=== PATIENT | male | born 1955 | race Hispanic/Latino ===

== ENCOUNTER 2017-05-25 09:52 | Emergency (ER) | payer SELFPAY ==
[~2017-05-25] VITALS: Ht 182.9 cm; Wt 70.0 kg
[~2017-05-25 09:52] MED LIST: CLONIDINE0.1 MG PO; ZOFRAN ODT4 MG PO
[2017-05-25] MEDS ORDERED: LORTAB 5-325 MG1 TAB PO (10:15)
[2017-05-25] MEDS ORDERED: PENICILLN VK500 MG PO (10:15)
[2017-05-25 10:20] VITALS: BP 118/70
== END 2017-05-25 10:20 | disposition home or self-care (01) | DRG 159 ==
LOC: ED 09:52
DX: K08.89 Other specified disorders of teeth and supporting structures (principal)

== ENCOUNTER 2018-03-19 17:10 | Inpatient (IN) | payer SELFPAY ==
[~2018-03-19] VITALS: Ht 172.7 cm; Wt 58.3 kg
[~2018-03-19 17:10] MED LIST changes: +LORTAB 5-325 MG1 TAB PO; +PENICILLN VK500 MG PO
[2018-03-19 18:22] LABS: HEMATOCRIT 34.5 % (39.0-50.0); HEMOGLOBIN 12.7 g/dl (14.0-18.0); IMMATURE GRANULOCYTES 0.3 % (0.0-1.0); MEAN CELL VOLUME 91.3 fL CALC (80.0-100.0); MEAN CORPUSCULAR HGB 33.6 pG CALC (26.0-32.0); MEAN CORPUSCULAR HGB CONC 36.8 g/L CALC (32.0-36.0); NEUT# 7.62 thou/uL (1.82-7.42); RED BLOOD COUNT 3.78 mill/uL (4.70-6.10); RED CELL DISTRI WIDTH 11.5 % (11.5-15.5)
[2018-03-19 18:39] LABS: ALBUMIN 4.2 g/dL (3.2-5.0); ALKALINE PHOSPHATASE 85 u/l (38-126); BILIRUBIN, TOTAL 1.8 mg/dL (0.0-1.4); BUN 5 mg/dL (8-23); BUN/CREATININE RATIO 9 (12-20 (CALC)); CARBON DIOXIDE 26 mmol/l (22-30); CREATININE 0.5 mg/dL (0.7-1.3); ETHYL ALCOHOL 12 mg/dl (0-30); GFR > 60 ML/MIN (>=60 (CALC)); GFR FOR AFR.AMER. > 60 ML/MIN (>=60 (CALC)); LIPASE 89 u/l (23-300); POTASSIUM 4.1 mmol/l (3.5-5.1); SGOT/AST 54 u/l (19-48); SGPT/ALT 47 u/l (11-66); TOTAL PROTEIN 8.5 g/dL (6.3-8.2)
[2018-03-19 18:46] LABS: ANION GAP 18 (6-22 (CALC)); CHLORIDE 80 mmol/l (95-108); SODIUM 120 mmol/l (137-146)
[2018-03-19 20:30] VITALS: BP 132/68
[2018-03-19 21:04] LABS: BARBITURATES NEGATIVE (NEGATIVE); COCAINE NEGATIVE (NEGATIVE); METHADONE NEGATIVE (NEGATIVE); OXCYCODONE NEGATIVE (NEGATIVE); TETRAHYDROCANNABIONOL NEGATIVE (NEGATIVE); TRICYLIC ANTIDEPRESSANTS NEGATIVE (NEGATIVE)
[2018-03-19 22:14] LABS: ANION GAP 16 (6-22 (CALC)); BUN 5 mg/dL (8-23); BUN/CREATININE RATIO 10 (12-20 (CALC)); CARBON DIOXIDE 27 mmol/l (22-30); CHLORIDE 81 mmol/l (95-108); CREATININE 0.5 mg/dL (0.7-1.3); GFR > 60 ML/MIN (>=60 (CALC)); GFR FOR AFR.AMER. > 60 ML/MIN (>=60 (CALC)); MAGNESIUM 1.2 mg/dL (1.6-2.3); POTASSIUM 3.9 mmol/l (3.5-5.1); SODIUM 120 mmol/l (137-146)
[2018-03-19 23:00] VITALS: BP 152/72
[2018-03-19 23:15] VITALS: BP 142/70
[2018-03-19 23:30] VITALS: BP 138/69
[2018-03-19 23:45] VITALS: BP 148/78
[2018-03-20] VITALS (16 sets, daily range): BP systolic 134–179; BP diastolic 70–103
[2018-03-20 04:00] LABS: HEMATOCRIT 33.9 % (39.0-50.0); HEMOGLOBIN 12.3 g/dl (14.0-18.0); MEAN CELL VOLUME 91.9 fL CALC (80.0-100.0); MEAN CORPUSCULAR HGB 33.3 pG CALC (26.0-32.0); MEAN CORPUSCULAR HGB CONC 36.3 g/L CALC (32.0-36.0); RED BLOOD COUNT 3.69 mill/uL (4.70-6.10); RED CELL DISTRI WIDTH 11.7 % (11.5-15.5)
[2018-03-20 04:13] LABS: ANION GAP 16 (6-22 (CALC)); BUN 5 mg/dL (8-23); BUN/CREATININE RATIO 10 (12-20 (CALC)); CARBON DIOXIDE 24 mmol/l (22-30); CHLORIDE 87 mmol/l (95-108); CREATININE 0.5 mg/dL (0.7-1.3); GFR > 60 ML/MIN (>=60 (CALC)); GFR FOR AFR.AMER. > 60 ML/MIN (>=60 (CALC)); POTASSIUM 4.4 mmol/l (3.5-5.1); SODIUM 123 mmol/l (137-146)
[2018-03-20 04:14] LABS: MAGNESIUM 1.8 mg/dL (1.6-2.3)
[2018-03-20 08:58] LABS: POTASSIUM 3.6 mmol/l (3.5-5.1)
[2018-03-20 12:12] LABS: POTASSIUM 3.5 mmol/l (3.5-5.1)
[2018-03-21] VITALS (23 sets, daily range): BP systolic 89–177; BP diastolic 53–106
[2018-03-21 04:59] LABS: HEMATOCRIT 39.8 % (39.0-50.0); HEMOGLOBIN 14.1 g/dl (14.0-18.0); IMMATURE GRANULOCYTES 0.3 % (0.0-1.0); MEAN CELL VOLUME 93.6 fL CALC (80.0-100.0); MEAN CORPUSCULAR HGB 33.2 pG CALC (26.0-32.0); MEAN CORPUSCULAR HGB CONC 35.4 g/L CALC (32.0-36.0); NEUT# 6.07 thou/uL (1.82-7.42); RED BLOOD COUNT 4.25 mill/uL (4.70-6.10); RED CELL DISTRI WIDTH 11.8 % (11.5-15.5)
[2018-03-21 05:11] LABS: ANION GAP 14 (6-22 (CALC)); BUN 6 mg/dL (8-23); BUN/CREATININE RATIO 11 (12-20 (CALC)); CARBON DIOXIDE 27 mmol/l (22-30); CHLORIDE 91 mmol/l (95-108); CREATININE 0.5 mg/dL (0.7-1.3); GFR > 60 ML/MIN (>=60 (CALC)); GFR FOR AFR.AMER. > 60 ML/MIN (>=60 (CALC)); SODIUM 129 mmol/l (137-146)
[2018-03-22] VITALS (29 sets, daily range): BP systolic 76–211; BP diastolic 44–107
[2018-03-22 06:54] LABS: ALBUMIN 3.6 g/dL (3.2-5.0); BUN 13 mg/dL (8-23); CARBON DIOXIDE 23 mmol/l (22-30); CHLORIDE 96 mmol/l (95-108); CREATININE 0.6 mg/dL (0.7-1.3); GFR > 60 ML/MIN (>=60 (CALC)); GFR FOR AFR.AMER. > 60 ML/MIN (>=60 (CALC)); POTASSIUM 3.3 mmol/l (3.5-5.1); SODIUM 130 mmol/l (137-146)
[2018-03-23] VITALS (12 sets, daily range): BP systolic 138–187; BP diastolic 67–94
[2018-03-23 05:20] LABS: HEMATOCRIT 37.8 % (39.0-50.0); HEMOGLOBIN 13.5 g/dl (14.0-18.0); IMMATURE GRANULOCYTES 0.6 % (0.0-1.0); MEAN CELL VOLUME 95.2 fL CALC (80.0-100.0); MEAN CORPUSCULAR HGB CONC 35.7 g/L CALC (32.0-36.0); NEUT# 6.41 thou/uL (1.82-7.42); RED BLOOD COUNT 3.97 mill/uL (4.70-6.10); RED CELL DISTRI WIDTH 11.8 % (11.5-15.5)
[2018-03-23 05:45] LABS: ALBUMIN 3.7 g/dL (3.2-5.0); BUN 9 mg/dL (8-23); CARBON DIOXIDE 27 mmol/l (22-30); CHLORIDE 95 mmol/l (95-108); CREATININE 0.4 mg/dL (0.7-1.3); GFR > 60 ML/MIN (>=60 (CALC)); GFR FOR AFR.AMER. > 60 ML/MIN (>=60 (CALC)); POTASSIUM 2.9 mmol/l (3.5-5.1); SODIUM 132 mmol/l (137-146)
[2018-03-24] VITALS (13 sets, daily range): BP systolic 81–183; BP diastolic 51–93
[2018-03-24 08:08] LABS: MEAN CORPUSCULAR HGB 33.5 pG CALC (26.0-32.0); MEAN CORPUSCULAR HGB CONC 35.3 g/L CALC (32.0-36.0); RED BLOOD COUNT 3.58 mill/uL (4.70-6.10); RED CELL DISTRI WIDTH 11.8 % (11.5-15.5)
[2018-03-24 08:20] LABS: BUN 4 mg/dL (8-23); CARBON DIOXIDE 30 mmol/l (22-30); CHLORIDE 96 mmol/l (95-108); CREATININE 0.4 mg/dL (0.7-1.3); GFR > 60 ML/MIN (>=60 (CALC)); GFR FOR AFR.AMER. > 60 ML/MIN (>=60 (CALC)); POTASSIUM 2.9 mmol/l (3.5-5.1); SODIUM 132 mmol/l (137-146)
[2018-03-25] VITALS (15 sets, daily range): BP systolic 110–177; BP diastolic 60–99
[2018-03-25 04:39] LABS: ALBUMIN 2.6 g/dL (3.2-5.0); ALKALINE PHOSPHATASE 56 u/l (38-126); ANION GAP 8 (6-22 (CALC)); BILIRUBIN, TOTAL 0.5 mg/dL (0.0-1.4); BUN 7 mg/dL (8-23); BUN/CREATININE RATIO 16 (12-20 (CALC)); CARBON DIOXIDE 27 mmol/l (22-30); CHLORIDE 100 mmol/l (95-108); CREATININE 0.4 mg/dL (0.7-1.3); GFR > 60 ML/MIN (>=60 (CALC)); GFR FOR AFR.AMER. > 60 ML/MIN (>=60 (CALC)); MAGNESIUM 1.1 mg/dL (1.6-2.3); POTASSIUM 3.3 mmol/l (3.5-5.1); SGOT/AST 36 u/l (19-48); SGPT/ALT 36 u/l (11-66); SODIUM 131 mmol/l (137-146)
[2018-03-25 05:09] LABS: HEMATOCRIT 29.7 % (39.0-50.0); HEMOGLOBIN 10.4 g/dl (14.0-18.0); IMMATURE GRANULOCYTES 0.3 % (0.0-1.0); MEAN CELL VOLUME 95.8 fL CALC (80.0-100.0); MEAN CORPUSCULAR HGB 33.5 pG CALC (26.0-32.0); NEUT# 3.98 thou/uL (1.82-7.42); RED BLOOD COUNT 3.1 mill/uL (4.70-6.10)
[2018-03-25 21:01] LABS: URINE BILIRUBIN - DIPSTICK NEGATIVE (NEGATIVE); URINE BLOOD DIPSTICK MODERATE (NEGATIVE); URINE COLOR YELLOW; URINE GLUCOSE - DIPSTICK 100 mg/dL (NEGATIVE); URINE KETONE NEGATIVE (NEGATIVE); URINE LEUK ESTERASE NEGATIVE (NEGATIVE); URINE NITRITE - DIPSTICK NEGATIVE (Negative); URINE PROTEIN - DIPSTICK NEGATIVE (NEG-TRACE); URINE UROBILINOGEN - DIPSTICK >=8.0 E.U./dL (0.2)
[2018-03-25 21:03] LABS: URINE CLARITY CLEAR
[2018-03-25 21:15] LABS: URINE RBC 25-50 RBC/hpf (0-5); URINE SQUAMOUS EPITHELIAL CELL FEW EPI/hpf (0-FEW)
[2018-03-26] VITALS (19 sets, daily range): BP systolic 131–180; BP diastolic 71–95
[2018-03-26 08:43] LABS: HEMATOCRIT 29.3 % (39.0-50.0); HEMOGLOBIN 10.1 g/dl (14.0-18.0); IMMATURE GRANULOCYTES 0.2 % (0.0-1.0); MEAN CELL VOLUME 96.7 fL CALC (80.0-100.0); MEAN CORPUSCULAR HGB 33.3 pG CALC (26.0-32.0); MEAN CORPUSCULAR HGB CONC 34.5 g/L CALC (32.0-36.0); NEUT# 5.47 thou/uL (1.82-7.42); RED BLOOD COUNT 3.03 mill/uL (4.70-6.10); RED CELL DISTRI WIDTH 11.9 % (11.5-15.5)
[2018-03-26 09:05] LABS: ALBUMIN 2.7 g/dL (3.2-5.0); ALKALINE PHOSPHATASE 67 u/l (38-126); ANION GAP 10 (6-22 (CALC)); BILIRUBIN, TOTAL 0.5 mg/dL (0.0-1.4); BUN 7 mg/dL (8-23); BUN/CREATININE RATIO 13 (12-20 (CALC)); CARBON DIOXIDE 28 mmol/l (22-30); CHLORIDE 98 mmol/l (95-108); CREATININE 0.5 mg/dL (0.7-1.3); GFR > 60 ML/MIN (>=60 (CALC)); GFR FOR AFR.AMER. > 60 ML/MIN (>=60 (CALC)); POTASSIUM 3.5 mmol/l (3.5-5.1); SGOT/AST 26 u/l (19-48); SGPT/ALT 36 u/l (11-66); SODIUM 133 mmol/l (137-146); TOTAL PROTEIN 6.2 g/dL (6.3-8.2)
[2018-03-27] VITALS (16 sets, daily range): BP systolic 110–186; BP diastolic 70–106
[2018-03-27 04:28] LABS: HEMATOCRIT 30.6 % (39.0-50.0); HEMOGLOBIN 10.7 g/dl (14.0-18.0); IMMATURE GRANULOCYTES 0.4 % (0.0-1.0); MEAN CELL VOLUME 96.2 fL CALC (80.0-100.0); MEAN CORPUSCULAR HGB 33.6 pG CALC (26.0-32.0); NEUT# 5.33 thou/uL (1.82-7.42); RED BLOOD COUNT 3.18 mill/uL (4.70-6.10); RED CELL DISTRI WIDTH 11.9 % (11.5-15.5)
[2018-03-27 04:35] LABS: ANION GAP 8 (6-22 (CALC)); BUN 7 mg/dL (8-23); BUN/CREATININE RATIO 15 (12-20 (CALC)); CARBON DIOXIDE 29 mmol/l (22-30); CHLORIDE 100 mmol/l (95-108); CREATININE 0.5 mg/dL (0.7-1.3); GFR > 60 ML/MIN (>=60 (CALC)); GFR FOR AFR.AMER. > 60 ML/MIN (>=60 (CALC)); MAGNESIUM 1.6 mg/dL (1.6-2.3); POTASSIUM 3.5 mmol/l (3.5-5.1); SODIUM 133 mmol/l (137-146)
[2018-03-28] VITALS (9 sets, daily range): BP systolic 112–169; BP diastolic 50–87
[2018-03-28 05:24] LABS: HEMATOCRIT 30.5 % (39.0-50.0); HEMOGLOBIN 10.4 g/dl (14.0-18.0); MEAN CELL VOLUME 97.1 fL CALC (80.0-100.0); MEAN CORPUSCULAR HGB 33.1 pG CALC (26.0-32.0); MEAN CORPUSCULAR HGB CONC 34.1 g/L CALC (32.0-36.0); RED BLOOD COUNT 3.14 mill/uL (4.70-6.10); RED CELL DISTRI WIDTH 11.9 % (11.5-15.5)
[2018-03-28 05:37] LABS: ANION GAP 9 (6-22 (CALC)); BUN 7 mg/dL (8-23); BUN/CREATININE RATIO 14 (12-20 (CALC)); CARBON DIOXIDE 28 mmol/l (22-30); CHLORIDE 100 mmol/l (95-108); CREATININE 0.5 mg/dL (0.7-1.3); GFR > 60 ML/MIN (>=60 (CALC)); GFR FOR AFR.AMER. > 60 ML/MIN (>=60 (CALC)); MAGNESIUM 1.3 mg/dL (1.6-2.3); POTASSIUM 3.6 mmol/l (3.5-5.1); SODIUM 134 mmol/l (137-146)
[2018-03-29 00:05] VITALS: BP 116/61
[2018-03-29 05:31] LABS: HEMATOCRIT 31.2 % (39.0-50.0); HEMOGLOBIN 10.8 g/dl (14.0-18.0); MEAN CELL VOLUME 96.9 fL CALC (80.0-100.0); MEAN CORPUSCULAR HGB 33.5 pG CALC (26.0-32.0); MEAN CORPUSCULAR HGB CONC 34.6 g/L CALC (32.0-36.0); RED BLOOD COUNT 3.22 mill/uL (4.70-6.10); RED CELL DISTRI WIDTH 11.9 % (11.5-15.5)
[2018-03-29 05:59] LABS: ANION GAP 10 (6-22 (CALC)); BUN 6 mg/dL (8-23); BUN/CREATININE RATIO 11 (12-20 (CALC)); CARBON DIOXIDE 29 mmol/l (22-30); CHLORIDE 101 mmol/l (95-108); CREATININE 0.5 mg/dL (0.7-1.3); GFR > 60 ML/MIN (>=60 (CALC)); GFR FOR AFR.AMER. > 60 ML/MIN (>=60 (CALC)); MAGNESIUM 1.4 mg/dL (1.6-2.3); POTASSIUM 3.3 mmol/l (3.5-5.1); SODIUM 135 mmol/l (137-146)
[2018-03-29 08:00] VITALS: BP 159/88
[2018-03-29 12:47] VITALS: BP 133/75
[2018-03-29] MEDS ORDERED: FOLIC ACID1 M1 PO (13:03)
[2018-03-29] MEDS ORDERED: THIAMINE HCL100 MG PO (13:03)
[2018-03-29] MEDS ORDERED: AUGMENTIN875TAB PO (13:03)
[2018-03-29] MEDS ORDERED: MAG-OX 400400 MG PO (13:03)
[2018-03-29 20:00] VITALS: BP 159/88
[2018-03-29 22:00] VITALS: BP 174/89
[2018-03-30] VITALS: BP 141/79
[2018-03-30 08:20] VITALS: BP 159/79
[2018-03-30 20:00] VITALS: BP 146/84
== END 2018-03-30 21:58 | disposition home or self-care (01) | DRG 896 ==
LOC: ED 17:10 → MS2 19:46 → ICU 22:34
PROVIDERS: Emergency Medicine; Internal Medicine; Internal Medicine Nephrology; Nurse Practitioner; Nurse Practitioner Family; ADMIT Internal Medicine; ATTEND Internal Medicine
PROC: 0T9B70Z Drainage of Bladder with Drainage Device, Via Natural or Artificial Opening (ICD-10-PCS; principal; 2018-03-22)
DX: F10.231 Alcohol dependence with withdrawal delirium (principal); J69.0 Pneumonitis due to inhalation of food and vomit; E87.1 Hypo-osmolality and hyponatremia; G40.89 Other seizures; I10 Essential (primary) hypertension; E83.42 Hypomagnesemia; E87.6 Hypokalemia; D64.9 Anemia, unspecified; Z78.1 Physical restraint status
CPT/HCPCS: J2060; J3475; S0164

== ENCOUNTER 2018-05-16 10:55 | Emergency (ER) | payer SELFPAY ==
[~2018-05-16] VITALS: Ht 172.7 cm; Wt 56.0 kg
[~2018-05-16 10:55] MED LIST changes: +AUGMENTIN875TAB PO; +FOLIC ACID1 M1 PO; +MAG-OX 400400 MG PO; +THIAMINE HCL100 MG PO
[2018-05-16 12:29] LABS: C. DIFFICILE TOXIN A&B NEGATIVE (NEGATIVE)
[2018-05-16] MEDS ORDERED: BENTYL10 MG PO (13:25)
[2018-05-16] MEDS ORDERED: PEPTO-BISMOL262 MG PO (13:25)
[2018-05-16 13:41] VITALS: BP 145/84
== END 2018-05-16 13:41 | disposition home or self-care (01) | DRG 392 ==
LOC: ED 10:55
DX: A08.0 Rotaviral enteritis (principal); I10 Essential (primary) hypertension

== ENCOUNTER 2018-11-05 21:32 | Inpatient (IN) | payer SELFPAY ==
[~2018-11-05] VITALS: Ht 172.7 cm; Wt 60.1 kg
[~2018-11-05 21:32] MED LIST changes: +BENTYL10 MG PO; +PEPTO-BISMOL262 MG PO
--- NOTE | 2018-11-05 21:44 | NUR ---
PT. TO ROOM 13 VIA EMS WITH C/O ABD. PAIN NAUSEA AND VOMITING STARTING AT 1700 THIS EVENING.
--- NOTE | 2018-11-05 22:00 | NUR ---
RESTING QUIETLY AWAKENS EASILY, IVF INFUSING WELL, NO REDNESS OR EDEMA NOTED.
[2018-11-05 22:09] LABS: HEMATOCRIT 36.9 % (39.0-50.0); IMMATURE GRANULOCYTES 1.1 % (0.0-5.0); MEAN CORPUSCULAR HGB 33.4 pG CALC (26.0-32.0); MEAN CORPUSCULAR HGB CONC 36.3 g/L CALC (32.0-36.0); NEUT# 10.66 thou/uL (1.82-7.42); RED BLOOD COUNT 4.01 mill/uL (4.70-6.10); RED CELL DISTRI WIDTH 11.7 % (11.5-15.5)
[2018-11-05 22:14] LABS: HEMOGLOBIN 13.4 g/dl (14.0-18.0)
--- NOTE | 2018-11-05 22:20 | NUR ---
RECEIVED REPORT FROM JESSE PACHECO. IN ROOM INTRODUCED SELF TO PT. NO C/O AT THIS TIME. IVF INFUSING WELL, NO REDNESS OR EDEMA NOTED.
[2018-11-05 22:27] LABS: ALKALINE PHOSPHATASE 60 u/l (38-126); AMYLASE 90 u/l (30-110); BILIRUBIN, TOTAL 0.9 mg/dL (0.0-1.4); BUN 11 mg/dL (8-23); BUN/CREATININE RATIO 19 (12-20 (CALC)); CARBON DIOXIDE 25 mmol/l (22-30); CREATININE 0.6 mg/dL (0.7-1.3); GFR > 60 ML/MIN (>=60 (CALC)); GFR FOR AFR.AMER. > 60 ML/MIN (>=60 (CALC)); LIPASE 69 u/l (23-300); POTASSIUM 3.8 mmol/l (3.5-5.1); SGOT/AST 42 u/l (19-48)
[2018-11-05 22:28] LABS: ALBUMIN 4.9 g/dL (3.2-5.0); ANION GAP 21 (6-22 (CALC)); CHLORIDE 85 mmol/l (95-108); SODIUM 127 mmol/l (137-146); TOTAL PROTEIN 8.9 g/dL (6.3-8.2)
[2018-11-05 22:35] LABS: MYOGLOBIN 67 ng/mL (0 - 121)
--- NOTE | 2018-11-05 23:50 | NUR ---
PT. STATES HIS ABD. PAIN IS NOW DECREASED TO A 2 ON A SCALE OF 1-10.
--- NOTE | 2018-11-05 23:54 | NUR ---
MD IN ROOM TO DISCUSS CLINICAL FINDINGS EITH PT. AND ALSO MAKE HIM AWARE OF ADMISSION, VERBALIZED UNDERSTANDING.
[2018-11-06] VITALS (8 sets, daily range): BP systolic 154–190; BP diastolic 70–90
[2018-11-06 00:12] LABS: URINE BILIRUBIN - DIPSTICK NEGATIVE (NEGATIVE); URINE BLOOD DIPSTICK NEGATIVE (NEGATIVE); URINE COLOR YELLOW; URINE GLUCOSE - DIPSTICK NEGATIVE (NEGATIVE); URINE KETONE 15 mg/dL (NEGATIVE); URINE LEUK ESTERASE NEGATIVE (NEGATIVE); URINE NITRITE - DIPSTICK NEGATIVE (Negative); URINE PH 6.5 (4.5-8.0); URINE PROTEIN - DIPSTICK NEGATIVE (NEG-TRACE); URINE SPECIFIC GRAVITY <=1.005; URINE UROBILINOGEN - DIPSTICK 0.2 E.U./dL (0.2)
--- NOTE | 2018-11-06 00:27 | NUR ---
16 FR NG TUBE INSERTED, PLACEMENT CHECKED BY AIR AUSCULTATION, PATIENT AND DRAINING BROWNISH COLORED FLUID 700ML. PT. TOLERATED WELL.
--- NOTE | 2018-11-06 00:34 | NUR ---
Admission Note Report Given to: LIAN HAYNES Transported by: Wheelchair X Stretcher Transported with: X Nurse Transporter X Patent IV O2 X Outbound Sales Advisor
--- NOTE | 2018-11-06 00:40 | NUR ---
PT. TRANSFERED TO OR FLOOR VIA STRETCHER.
--- NOTE | 2018-11-06 00:45 | NUR ---
PT ARRIVED TO FLOOR VIA STRETCHER. PT ALERT AND ORIENTED. NG TUBE IN PLACE CLAMPED AT THIS TIME. IV SITE APPEARS HEALTHY WITH NS RUNNING AT 125 ML/HR. PT C/O ABDOMINAL PAIN UPON PALPATION. HYPOACTIVE BOWEL SOUNDS NOTED. PT AMBULATED FROM STRETCHER TO BED WITH STEADY GAIT. ASHLEE FROM RADIOLOGY TRANSLATED FOR ADMISSION ASSESSMENT. SKIN INTACT. EDUCATED PT ON SAFETY PRECAUTIONS. CALL LIGHT WITHIN REACH. WILL CONTINUE TO MONITOR.
--- NOTE | 2018-11-06 01:51 | NUR ---
ORDERS RECIEVED FOR SUCTION. TUBE PLACEMENT CONFIRMED. LOW INTERMITTENT SUCTIONS INTIATED AT THIS TIME. BROWN COLORED OUTPUT IN TUBE NOTED. PT TOLERATING WELL. MONCHO PACHECO TRANSLATED AT THIS TIME.
--- NOTE | 2018-11-06 02:31 | NUR ---
ER TELEMETRY MONITORING CALLED REPORTING ST ELEVATION IN TWO OR MORE LEADS THAT WAS COMPARED TO PRIOR EKG. NEW EKG ORDERED. NO ST ELEVATION NOTED ON NEW EKG. PT DENIES ANY CHEST PAIN AT THIS TIME. RESTING COMFORTABLY IN BED. NG TUBE SUCTION AND IV FLUIDS CONTINUE ORDERED. PT TOLERATING WELL. CALL LIGHT WITHIN REACH. WILL CONTINUE TO MONITOR.
--- NOTE | 2018-11-06 02:39 | NUR ---
ER TELEMETRY MONITORING CALLED REPORTING ST ELEVATION IN TWO OR MORE LEADS THAT WAS COMPARED TO PRIOR EKG. NEW EKG ORDERED. PT DENIES ANY CHEST PAIN AT THIS TIME. RESTING COMFORTABLY IN BED. NG TUBE SUCTION AND IV FLUIDS CONTINUE ORDERED. PT TOLERATING WELL. CALL LIGHT WITHIN REACH. WILL CONTINUE TO MONITOR.
--- NOTE | 2018-11-06 02:40 | NUR ---
EKG REVIEWED BY ER PHYSICIAN. VERBAL ORDERS RECIEVED FOR STAT TROP AND EKG IN AM.
[2018-11-06 04:41] LABS: HEMATOCRIT 35.2 % (39.0-50.0); HEMOGLOBIN 12.5 g/dl (14.0-18.0); IMMATURE GRANULOCYTES 0.4 % (0.0-5.0); MEAN CELL VOLUME 92.9 fL CALC (80.0-100.0); MEAN CORPUSCULAR HGB CONC 35.5 g/L CALC (32.0-36.0); NEUT# 9.71 thou/uL (1.82-7.42); RED BLOOD COUNT 3.79 mill/uL (4.70-6.10); RED CELL DISTRI WIDTH 11.8 % (11.5-15.5)
[2018-11-06 04:56] LABS: ALBUMIN 4.4 g/dL (3.2-5.0); ALKALINE PHOSPHATASE 52 u/l (38-126); ANION GAP 19 (6-22 (CALC)); BILIRUBIN, TOTAL 1.1 mg/dL (0.0-1.4); BUN 11 mg/dL (8-23); BUN/CREATININE RATIO 19 (12-20 (CALC)); CARBON DIOXIDE 24 mmol/l (22-30); CHLORIDE 91 mmol/l (95-108); CREATININE 0.6 mg/dL (0.7-1.3); GFR > 60 ML/MIN (>=60 (CALC)); GFR FOR AFR.AMER. > 60 ML/MIN (>=60 (CALC)); SGOT/AST 34 u/l (19-48); SODIUM 129 mmol/l (137-146); TOTAL PROTEIN 7.7 g/dL (6.3-8.2)
[2018-11-06 05:00] LABS: POTASSIUM 4.7 mmol/l (3.5-5.1)
--- NOTE | 2018-11-06 06:29 | NUR ---
PT RESTING IN BED WITH EYES CLOSED. PT WAKES EASILY TO STIMULATION. DENIES ANY PAIN. NG TUBE REMAINS IN PLACE AT LOW INTERMITTENT SUCTIONS. 50ML BROWN/RED OUTPUT. IV FLUIDS INFUSING WITHOUT DIFFICULTY. RESPIRATIONS EVEN AND UNLABORED. CALL LIGHT WITHIN REACH. WILL CONTINUE TO MONITOR.
--- NOTE | 2018-11-06 07:05 | NUR ---
REPORT RECEIVED FROM DALLAS BEAL;PT RESTING IN SEMI FOWLERS POSITION;INTRODUCED SELF TO PT AND POC DISCUSSED;PT REPORTS "SMALL PAIN" TO ABDOMEN;NG TUBE PATENT DRAINING RED/BROWN FLUID, RUNNING AT LIS;IV FLUIDS INFUSING WITH EASE;TELE MONITORING IN PLACE;NPO DIET REINFORCED AND PT VERBALIZES UNDERSTANDING;PT DENIES ANY ADDITIONAL NEEDS AT THIS TIME ANS IS ENCOURAGED TO CALL FOR ASSISTANCE IF NEEDED;FALL PRECAUTIONS IN PLACE WITH CALL LIGHT IN REACH;WILL CONTINUE TO MONITOR
--- NOTE | 2018-11-06 09:00 | NUR ---
PT RESTING IN SEMI FOWLERS POSITION;PT IS ETHIOPIAN SPEAKING ONLY ASSESSMENT TRANSLATED BY BAILEY POLO;PT ALERT AND ORIENTED X3;VS OBTAINED AND ASSESSMENT COMPLETED;ELEVATED BP 182/90 AND TEMP 99.1 NOTED, TO BE NOTIFIED;AC LOWERED AND BLANKETS REMOVED;PT REPORTS PAIN TO ABDOMEN RATING 1/10 ON THE PAIN SCALE, PAIN SCALE AND REPORTING EDUCATED;RESPIRATIONS EVEN AND UNLABORED ON RA, CLEAR LUNG SOUNDS NOTED;ABDOMEN DISTENDED/SOFT ON PALPATION AND HYPOACTIVE IN ALL 4 QUADRANTS;NG TUBE PATENT DRAINING BROWN/RED DRAINAGE TO LIS;TELE MONITORING IN PLACE;EMS #18G TO LAC INFUSING NS @ 125ML/HR,SITE APPEARS HEALTHY;NPO DIET REINFORCED AND PT VERBALIZES UNDERSTANDING;PT DENIES ANY ADDITIONAL NEEDS AT THIS TIME AND IS ENCOURAGED TO CALL FOR ASSISTANCE IF NEEDED;CALL LIGHT IN REACH;WILL CONTINUE TO MONITOR
--- NOTE | 2018-11-06 09:45 | NUR ---
NOTIFIED ON ELEVATED BP 182/90 AND TEMP 99.1, NO NEW ORDERS RECEIVED AT THIS TIME.
--- NOTE | 2018-11-06 11:30 | NUR ---
NOTIFIED OF PT BP AND TEMP INCREASING, NO NEW ORDERS RECEIVED.
--- NOTE | 2018-11-06 11:41 | NUR ---
AT BEDSIDE DISCUSSING POC.
--- NOTE | 2018-11-06 11:50 | NUR ---
PT RESTING IN SEMI FOWLERS POSITION;RESPIRATIONS REMAIN EVEN AND UNLABORED ON RA;NG TUBE REMAINS PATENT TO LIS;PT DENIES ANY CURRENT PAIN OR NEEDS;CURRENT BP 190/83 HR 98, PT ADMINISTERED 10MG OF APRESOLINE IVP BY TARA HARRIS;IV FLUIDS CONTINUE TO INFUSE WITH EASE TO LAC;PT ENCOURAGED TO CALL FOR ASSISTANCE IF NEEDED;CALL LIGHT IN REACH;WILL CONTINUE TO MONITOR
--- NOTE | 2018-11-06 13:12 | NUR ---
BP RE-CHECK 164/70 HR 92
--- NOTE | 2018-11-06 13:55 | NUR ---
PT TRANSFERRED TO XRAY FOR SMALL BOWEL SERIES VIA WHEELCHAIR ACCOMPANIED BY VOLUNTEER IN STABLE CONDITION.
--- NOTE | 2018-11-06 16:44 | NUR ---
PT RETURNED BACK FROM XRAY IN STABLE CONDITION
--- NOTE | 2018-11-06 16:59 | NUR ---
PT REPORTS SEVERE ABDOMINAL PAIN RATING 9/10 ON THE PAIN SCALE, PT MEDICATED WITH PRN DEMEROL 25MG IVP AT THIS TIME;WILL MONITOR FOR EFFECTIVENESS
--- NOTE | 2018-11-06 20:00 | NUR ---
PATIENT RESTING IN BED AT THIS TIME-AWAKE ALERT AND ORIENTEDX3. PATIENT DENIES ANY PAIN AT THIS TIME. PATIENT IS SINGAPOREAN SPEAKING ONLY. TELE MONITOR INPLACE. NGT TO LIWS INTACT AND DRAING GREEN FLUIDS. ABD IS SLIGHTLY DISTENDED WITH HYPOACTIVE BS. VOIDING DARK JUDITH URINE IN URIANL. IV SITE TO LEFT AC INTACT WITH IVF D51/2NS 40 KCL PATENT ANDINFUSING AT 75CC/HR. SITE APPEARS HEALTHY AT THIS TIME. PATIENT REMAINS NPO ORDERED. SAFETY PRECAUTIONS REINFORCED. CALL LIGHT IN REACH. WILL CONT TO MONITOR
[2018-11-07] VITALS (17 sets, daily range): BP systolic 111–183; BP diastolic 53–91
--- NOTE | 2018-11-07 | NUR ---
PATIENT CONT TO DENY AY PAIN AT THIS TIME. IVF PATENT AND INFUSING AT 75CC/HR ORDERED. NGT CONT TO DRAIN GREEN FLUID. REMAINS NPO. CALL LIGHT IN REACH. WILL CONT TO MONITOR.
--- NOTE | 2018-11-07 04:28 | NUR ---
PATIENT RESTING IN BED-NGT PATENT AND CONT TO DRAIN GREEN FLUID. IVF D51/2NS WITH 40KCL AT 75CC/HR. SITE REMAINS HEALTHY AT THIS TIME. CALL LIGHT IN REACH. WILL CONT TO MONITOR.
[2018-11-07 05:16] LABS: HEMATOCRIT 40.3 % (39.0-50.0); HEMOGLOBIN 14.2 g/dl (14.0-18.0); IMMATURE GRANULOCYTES 0.4 % (0.0-5.0); MEAN CELL VOLUME 94.6 fL CALC (80.0-100.0); MEAN CORPUSCULAR HGB 33.3 pG CALC (26.0-32.0); MEAN CORPUSCULAR HGB CONC 35.2 g/L CALC (32.0-36.0); NEUT# 8.34 thou/uL (1.82-7.42); RED BLOOD COUNT 4.26 mill/uL (4.70-6.10)
[2018-11-07 05:31] LABS: ALBUMIN 4.2 g/dL (3.2-5.0); ALKALINE PHOSPHATASE 53 u/l (38-126); AMYLASE 37 u/l (30-110); ANION GAP 16 (6-22 (CALC)); BILIRUBIN, TOTAL 0.7 mg/dL (0.0-1.4); BUN 15 mg/dL (8-23); BUN/CREATININE RATIO 22 (12-20 (CALC)); CARBON DIOXIDE 25 mmol/l (22-30); CHLORIDE 98 mmol/l (95-108); CREATININE 0.6 mg/dL (0.7-1.3); GFR > 60 ML/MIN (>=60 (CALC)); GFR FOR AFR.AMER. > 60 ML/MIN (>=60 (CALC)); LIPASE 49 u/l (23-300); POTASSIUM 4.4 mmol/l (3.5-5.1); SGOT/AST 28 u/l (19-48); SODIUM 135 mmol/l (137-146); TOTAL PROTEIN 7.6 g/dL (6.3-8.2)
[2018-11-07 05:34] LABS: MAGNESIUM 2.2 mg/dL (1.6-2.3)
--- NOTE | 2018-11-07 06:00 | NUR ---
PATIENT RESTING IN BED WITH NG TUBE TO LIWS-CONT TO DRAIN GREEN FLUID-800CC/SHIFT. NEW IV SITE STARTED TO RIGHT FOREARM-#22 GAUGE WITH GOOD BLOOD RETURN. IVF PATENT AND INFUSING AT 75CC/HR. REMAINS NPO AT THIS TIME. CALL LIGHT IN REACH, WILL CONT TO MONITOR.
--- NOTE | 2018-11-07 07:10 | NUR ---
REPORT RECEIVED FROM TARA CM;PT RESTING IN SEMI FOWLERS POSITION;INTRODUCED SELF TO PT AND POC DISCUSSED;PT DENIES ANY CURRENT PAIN OR NEEDS;NG TUBE APPEARS PATENT RUNNING TO LIS;TELE MONITORING IN PLACE;IV FLUIDS INFUSING WELL TO RIGHT FOREARM;PT DENIES ANY ADDITIONAL NEEDS AT THIS TIME;FALL PRECAUTIONS IN PLACE WITH BED IN THE LOWEST POSITION AND CALL LIGHT IN REACH;WILL CONTINUE TO MONITOR
--- NOTE | 2018-11-07 08:50 | NUR ---
PT RESTING IN SUPINE POSITION;VS OBTAINED AND ASSESSMENT COMPLETED,CURRENT BP 171/89 HR 70 PT TO BE MEDICATED FOR HYPERTENSION PER EMAR;PT DENIES ANY ABDOMINAL PAIN AT THIS TIME,PAIN SCALE AND REPORTING EDUCATED;RESPIRATIONS EVEN AND UNLABORED ON RA,CLEAR LUNG SOUNDS NOTED;ABDOMEN SOFT ON PALPATION AND HYPOACTIVE IN ALL 4 QUADRANTS;STRONG PEDAL PULSES;SKIN INTACT;TELE MONITORING IN PLACE;#22G TO RIGHT FOREARM INFUSING D5 1/2 NS WITH 40MEQ OF K @ 75 ML/HR WITH EASE, BANANA BAG TO BE STARTED AT THIS TIME;NG TUBE REMAINS PATENT DRAINING BROWN DRAINAGE TO LIS;PT DENIES ANY ADDITIONAL NEEDS AT THIS TIME;NPO DIET REINFORCED AND PT VERBALIZES UNDERSTANDING;CALL LIGHT IN REACH;WILL CONTINUE TO MONITOR
--- NOTE | 2018-11-07 08:51 | NUR ---
Critical results of blood culture growing gram positive cocci in 1/[address] Chavez. No new orders at this time.
--- NOTE | 2018-11-07 09:25 | NUR ---
PT MEDICATED WITH PRN APRESOLINE 10MG IVP FOR ELEVATED BP OF 171/89 HR 70 AND ATIVAN 1MG IVP BY TARA WELLS;WILL CONTINUE TO MONITOR FOR EFFECTIVENESS
--- NOTE | 2018-11-07 10:20 | NUR ---
BP RE-CHECKED 167/79 HR 84
--- NOTE | 2018-11-07 10:40 | NUR ---
AT BEDSIDE DISCUSSING POC.
--- NOTE | 2018-11-07 10:50 | NUR ---
INFORMED CONSENT OBTAINED BY NEL FOR A LAPROSCOPY POSSIBLE LAPAROTOMY
--- NOTE | 2018-11-07 11:14 | NUR ---
PT TRANSFERRED TO OR VIA [facility] ACCOMPANIED BY LANDY, OR STAFF MEMEBER IN STABLE CONDITION.
--- NOTE | 2018-11-07 13:14 | NUR ---
PT ARRIVED BACK TO FLOOR VIA STRETCHER IN STABLE CONDITION AND TRANSFERRED BACK TO HOSPITAL BED WITH 1 PERSON ASSIST;PT RE-ORIENTED TO ROOM AND CALL LIGHT SYSTEM;RESPIRATIONS EVEN AND UNLABORED ON RA;PT DENIES ANY CURRENT ABDOMINAL PAIN,PAIN SCALE AND REPORTING EDUCATED;X3 INCISIONS TO ABDOMEN CDI WITH DERMABOND IN PLACE AND WELL APPROX;BAEZ CATHETER WAS PLACED IN OR, LEG STRAP AND LABEL APPLIED;PT VOIDING CLEAR/YELLOW URINE;NG TUBE REMAINS PATENT AND IS STARTED TO LIS PER ORDER;TELE MONITOR RE-APPLIED:#22G TO RIGHT FOREARM REMAINS PATENT.NEW #18G TO LEFT FOREARM NOTED TO BE INFUSING D5 1/2 NS WITH EASE;ICE CHIPS PROVIDED PER REQUEST;PT DENIES ANY ADDITIONAL NEEDS AND IS ENCOURAGED TO CALL FOR ASSISTANCE IF NEEDED;CALL LIGHT IN REACH;WILL CONTINUE TO MONITOR
--- NOTE | 2018-11-07 15:40 | NUR ---
PT ATTEMPTING TO REMOVE NG TUBE;NEL CALLED FOR TRANSLATION;PT REPORTS THAT "THE KIDS WANTED TO JUMP ROPE WITH IT SO I TOOK IT OUT AND REALIZED WHAT I DID THEN PUT IT BACK IN";PT RE-ORIENTED TO TIME AND PLACE;PT VERBALIZES THAT HE KNOWS HE IS A [facility] AND HE CAME HERE BECAUSE OF STOMACH PAIN;BED ALARM PLACED ON FOR SAFETY PRECAUTIONS;WILL CONTINUE TO MONITOR
--- NOTE | 2018-11-07 16:00 | NUR ---
PT RESTING IN SEMI FOWLERS POSITION;RESPIRATIONS REMAIN EVEN AND UNLABORED ON RA;PT DENIES ANY CURRENT PAIN OR NEEDS;TELE MONITORING IN PLACE;NG TUBE PATENT;CURRENT BP 160/81;IV FLUIDS INFUSING WITH EASE TO LEFT FOREARM;PT ENCOURAGED TO CALL FOR ASSISTANCE IF NEEDED;BED ALARM ON FOR PATIENT SAFETY;CALL LIGHT IN REACH;WILL CONTINUE TO MONITOR
--- NOTE | 2018-11-07 16:30 | NUR ---
PT ATTEMPTED TO REMOVE SCD'S AND GET OUT OF BED;BED ALARM ALARMING THROUGHOUT HALLWAY;PT RE-POSITIONED INTO BED AND ATIVAN 1MG IVP ADMINISTERED AT THIS TIME;WILL MONITOR FOR EFFECTIVENESS
--- NOTE | 2018-11-07 18:00 | NUR ---
KAMILLE SHIELDS CALLED;PT FOUND AMBULATING THE HALLWAY WITH CATHETER, NG TUBE AND IV TUBES IN HAND;BLOOD LEAKING FROM IV SITE;PT TRANSFERRED TO MED/SUG BED 260 FOR CLOSER OBSERVATION;PT RE-POSITIONED IN BED, NG TUBE PATENT AND RE-STARTED TO LIS;BAEZ CATHETER REMAINS PATENT DRAINING CLEAR/YELLOW URINE;VEST AND SOFT RESTRAINTS RE-APPLIED;TRANSLATION PROVIDED BY BAILEY GUILLEN;PT RE-ORIENTED TO ROOM AND CALL LIGHT SYSTEM;ENCOURAGED TO CALL FOR ASSISTANCE;FALL PRECAUTIONS TO REMAIN IN PLACE WITH CALL LIGHT IN REACH;WILL CONTINUE TO MONITOR
--- NOTE | 2018-11-07 19:35 | NUR ---
PATIENT RESTING IN BED AT THIS TIME-AGITATED AND COMBATIVE WITH STAFF. PATIENT HAS GOTTEN OUT OF SOFT RESTRAINTS AND PULLED OUT HIS NGT AND HIS IV SITE TO LEFT FOREARM. PATIENT WITH BLOOD COVERED SHEETS. PATIENT TRASHING ABOUT IN THE BED TRYING TO GET OOB. STAFF WAS ABLE TO GET PATIENT BACK INTO BED AND SOFT RESTRAINTS WERE REAPPLIED TO BOTH WRIST. PATIENT WAS WASHED UP AND LINENS WERE CHANGED. TELE MONITOR IN PLACE AT THIS TIME. BAEZ CATH PATENT AND DRAINING YELLOW URINE. CATH STRAP INTACT TO RIGHT THIGH. IVF PATENT AND INFUSING AT 100CC/HR VIA RIGHT FOREARM IV SITE, SITE REMAINS HEALTHY AT THIS TIME. PATIENT MEDICATED FOR AGITATION WITH ATIVAN 1MG IVP ORDERED. PATIENT WITH 3 SMALL INCISIONS TO ABD WITH DERMADOND INTACT. NO REDNESS SWELLING OR DRAINAGE NOTED. ABD IS FIRM WITH HYPOACTIVE BS. BED ALARM IN PLACE. STAFF AT BEDSIDE FOR PATIENT SAFETY. RECIEVED ORDER FROM DR. ALANIZ TO TRANSFER TO ICU-[facility] – [place] PATIENT CARE COORDINATOR IS AWARE AND STATES THAT SHE WILL CONTACT ICU REGUARDING TRANSFER. PATIENT IS TOTALLY UNCOOPERATIVE AT THIS TIME. WILL CONT TO MONITOR.
--- NOTE | 2018-11-07 20:00 | NUR ---
PATIENT CONTINUES TO BE UNCCOPERATIVE AND TRYING TO GET OOB WITH STAFF AT BEDSIDE. PATIENT IS COMBATIVE AND IS ABLE TO GET OUT OF THE SOFT RESTRAINTS SOON THEY ARE APPLIED. PATIENT KICKING AND BITING AT STAFF. PATIENT MEDICATED WITH DILAUDID 1MG IVP FOR PAIN. SPOKE WITH DR. FRANK AND RECIEVED ORDER TO LEAVE NG TUBE AT THIS TIME, STAFF REMAINS AT BEDSIDE FOR PATIENT SAFETY. BED ALARM IN PLACE. SOFT WRIST RETRAINTS IN PLACE. WILL CONT TO MONITOR.
--- NOTE | 2018-11-07 20:45 | NUR ---
PATIENT CONT TO BE AGGRESIVE AND COMBATIVE WITH STAFF AT BEDSIDE-CONT TO GET OUT OF THE SOFT WRIST RESTRAINTS WHEN APPLIED. BP IS SLIGHTLY ELEATED AND LOPRESSOR WAS GIVEN ORDERED VIA RIGHT FOREARM SITE. AWAITING BED ASSIGNMENT FOR ICU TRANSFER. STAFF AT BEDSIDE. BED ALARM IN PLACE. WILL CONT TO MONITOR.
--- NOTE | 2018-11-07 21:15 | NUR ---
PATIENT CONT TO BE COMBATIVE AND AGITATED. STILL KICKING AND BITING AT STAFF. PATIENT MEDICATED WITH ATIVAN 1MG IVP ORDERED FOR AGITATION. STAFF AT BEDSIDE FOR PATIENT SAFETY. BED ALARM IN PLACE. SOFT WRIST RESTRANITS IN PLACE. WILL CONT TO MONITOR.
--- NOTE | 2018-11-07 21:45 | NUR ---
PATIENT TRANSPORTED TO ICU 7 VIA BED WITH [facility]AFF IN ATTENDANCE. PATIENT IS RESTING QUIETLY AT THIS TIME. RESP ARE EVEN AND UNLABORED. IVF PATENT AND INFUSING AT RIGHT FOREARM SITE. FLAGYL INFUSING ORDERED. SITTER AT BEDSIDE FOR PATIENT SAFETY. REPORT GIVEN TO SABINE HAYNES.
--- NOTE | 2018-11-07 21:50 | NUR ---
rec'd from medsurg per bed to icu7. pt speaking chilean, restless & confused. unable to reorient. bilat wrist rests cont. room service runner shows sinus rhythm. #22 rt hand banana bag infusing @ 100cchr. larson cath in place. urine lt shane
--- NOTE | 2018-11-07 22:30 | NUR ---
restless. ativan 1mg ivp given.
--- NOTE | 2018-11-07 22:45 | NUR ---
resting quietly. sitter remains bedside.
--- NOTE | 2018-11-07 23:30 | NUR ---
restless. ativan 1mg ivp given.
[2018-11-08] VITALS (22 sets, daily range): BP systolic 106–185; BP diastolic 63–103
--- NOTE | 2018-11-08 00:01 | NUR ---
eyes closed. no distress.
--- NOTE | 2018-11-08 01:40 | NUR ---
restless. ativan 1mg ivp given.
--- NOTE | 2018-11-08 02:00 | NUR ---
eyes closed. no distress.
--- NOTE | 2018-11-08 04:30 | NUR ---
incont liquid stool x3 this shift. remains confused.
[2018-11-08 05:03] LABS: MEAN CELL VOLUME 97.1 fL CALC (80.0-100.0); NEUT# 3.14 thou/uL (1.82-7.42); RED BLOOD COUNT 3.39 mill/uL (4.70-6.10)
[2018-11-08 05:23] LABS: HEMATOCRIT 32.9 % (39.0-50.0); HEMOGLOBIN 11.2 g/dl (14.0-18.0)
[2018-11-08 05:36] LABS: ANION GAP 12 (6-22 (CALC)); BUN 8 mg/dL (8-23); BUN/CREATININE RATIO 16 (12-20 (CALC)); CARBON DIOXIDE 27 mmol/l (22-30); CHLORIDE 96 mmol/l (95-108); CREATININE 0.5 mg/dL (0.7-1.3); GFR > 60 ML/MIN (>=60 (CALC)); GFR FOR AFR.AMER. > 60 ML/MIN (>=60 (CALC)); SODIUM 132 mmol/l (137-146)
[2018-11-08 05:45] LABS: POTASSIUM 3.2 mmol/l (3.5-5.1)
--- NOTE | 2018-11-08 06:00 | NUR ---
eyes closed. general warehouse associate shows sinus rhythm. sitter @ bedside.
--- NOTE | 2018-11-08 07:25 | NUR ---
PT ALERT AND CONFSUED, RESTRAINED FOR SAFETY, PT PULLING AT MONITORING EQUIPMENT, NOT FOLLOWING COMMANDS, ATTEMPTS TO RE-ORIENT NOT SUCCESSFUL, AM ASSESSMENT COMPLETE SEE INTERVENTIONS, LUNGS CLEAR WITH NO SOB OR DISTRESS NOTED, ABD SOFT BS ACTIVE SMALL ABD INC MICHELLE WITH DERMABOND INTACT NO DRNG NOTED, SKIN OTHERWISE INTACT IVF INFUSING AT PRESRIBED RATE INTO RFA IV ACCESS WITH GOOD ASPIRATE NOTED, OMFORT MEASURES PROVIDED, SITTER AT BEDSIDE FRO SAFETY WELL, WILL CONTINUE TO MONITOR.
--- NOTE | 2018-11-08 08:15 | NUR ---
MORE RESTLESS PULLING AT EQUIPMENT ETC...MEDICATED EARLIER ORDERED, WILL COTNINUE TO MONITOR, SITTER REMAINS AT BEDSIDE
--- NOTE | 2018-11-08 09:19 | NUR ---
PT REMAINS RESTLESS AND PULLING AT EQUIPMENT, SITTER REMAINBS AT BEDSIDE, WILL MEDICATE ORDERED, CALL GORMAN WITHIN REACH
--- NOTE | 2018-11-08 10:44 | NUR ---
PT REMAINS RESTLESS, RESTRAINTS REMAIN IN USE FOR PT SAFETY, SITTER REMAINS AT BEDSIDE, CALL GORMAN WITHIN REACH, IVF CONTINUE ORDERED
--- NOTE | 2018-11-08 12:10 | NUR ---
PT REMAINS RESTLESS, ATTEMPTING TO GET OOB, PULLING AT MEDICAL EQUIPMENT, DOES NOT FOLLOW COMMANDS, CALL GORMAN WITHIN REACH
--- NOTE | 2018-11-08 13:30 | NUR ---
IN TO SEE PATIENT, PLAN OF CARE DSICSUSSED INCLUDING STARTING DIET.
--- NOTE | 2018-11-08 14:45 | NUR ---
PT REMAINS CONFUSED, UNCOOPERATIVE, PULLING AT MEDICAL EQUIPMENT, SITTER REMAINS AT BEDSIDE, WILL CONTINUE TO MONITOR.
--- NOTE | 2018-11-08 15:05 | NUR ---
PT MEDICATED FOR ANXIETY AND S/S OF PAIN / DISCOMFORT. CALL GORMAN WITHIN REACH
--- NOTE | 2018-11-08 16:25 | NUR ---
PT SLEEPING AT THIS TIME, SITTER REMAINS AT BEDSIDE FOR SAFETY, WILL CONTINUE TO MONITOR.
--- NOTE | 2018-11-08 17:40 | NUR ---
PT REMAINS SLEEPING, VS STABLE, NO S/S DISTRESS NOTED, CALL GORMAN WITHIN REACH, SITTER REMAINS AT BEDSIDE.
--- NOTE | 2018-11-08 18:45 | NUR ---
REPORT FROM TARA HERRERA. ASSUMED PT. CARE.
--- NOTE | 2018-11-08 18:45 | NUR ---
REPORT FROM Jeremias NELSON RN. ASSUMED PT. CARE.
--- NOTE | 2018-11-08 19:10 | NUR ---
PT. FOUND RESTLESS, KICKING LEGS ABOUT BED AND ATTEMPTING TO PULL AT LINES AND CORDS. CALL LIGHT WITHIN REACH AND SITTER AT BEDSIDE AT THIS TIME. RESPS EVEN AND UNLABORED. SKIN WARM AND DRY. AFEBRILE. PT. REMAINS RESTRAINED AT THIS TIME. ORIENTED TO PERSON ONLY. LUNGS CTA. BOWEL SOUNDS PRESENT IN ALL QUADS. NO EDEMA NOTED. HYPERTENSIVE, BUT WILL REASSESS NEED PT. AGGITATED AT THIS TIME. CALL LIGHT WITHIN REACH. WILL CONTINUE TO MONITOR.
--- NOTE | 2018-11-08 19:10 | NUR ---
PT. ASSISTED TO RESTROOM AT THIS TIME. AMBULATORY WITH STEADY GAIT.
--- NOTE | 2018-11-08 20:55 | NUR ---
PT. RESTING IN BED, REMAINS RESTLESS. RESTRAINS REMAIN IN PLACE. SEE DOCUMENTATION. BP REMAINS ELEVATED, WILL CONTINUE TO MONITOR. SITTER REMAINS AT BEDSIDE.
--- NOTE | 2018-11-08 22:30 | NUR ---
PT. RESTING IN BED IN NO DISTRESS. CALL LIGHT REMAINS WITHIN REACH. SITTER REMAINS AT BEDSIDE AT THIS TIME. BP/HR STABLE.
[2018-11-09] VITALS (18 sets, daily range): BP systolic 101–191; BP diastolic 57–97
--- NOTE | 2018-11-09 00:15 | NUR ---
PT. RESTING IN BED WITH EYES CLOSED. VSS. REMAINS RESTRAINED AT THIS TIME. CALL LIGHT WITHIN REACH AND SITTER REMAINS AT BEDSIDE. NO DISTRESS.
--- NOTE | 2018-11-09 01:55 | NUR ---
PT. REMAINS IN NO DISTRESS AT THIS TIME. REMAINS INTERMITTENTLY AGGITATED. SITTER REMAINS AT BEDSIDE. WILL MEDICATE ORDERED.
--- NOTE | 2018-11-09 03:01 | NUR ---
PT. MEDICATED FOR AGGITATION AT THIS TIME. BP AND HR INCREASING. WILL ASSESS FOR DESIRED EFFECT. RESPS REMAIN EVEN AND UNLABORED. SKIN REMAINS WARM AND DRY. CALL LIGHT WITHIN REACH.
--- NOTE | 2018-11-09 05:00 | NUR ---
PT. REMAINS RESTRAINED WITH SITTER AT BEDSIDE. IV FLUIDS CONTINUE TO INFUSE WITHOUT SX OF INFILTRATION OR EXTRAVASATION. CALL LIGHT REMAINS WITHIN REACH.
--- NOTE | 2018-11-09 06:30 | NUR ---
FLAGYL INFUSING AT THIS TIME WITHOUT SX OF INFILTRATION OR EXTRAVASATION. CALL LIGHT REMAINS WITHIN REACH. WILL CONTINUE TO ASSESS.
--- NOTE | 2018-11-09 07:20 | NUR ---
PT DROWSY AND CONFSUED,REMAINS RESTRAINED FOR SAFETY, PT PULLING AT MONITORING EQUIPMENT, NOT FOLLOWING COMMANDS, ATTEMPTS TO RE-ORIENT NOT SUCCESSFUL, AM ASSESSMENT COMPLETE SEE INTERVENTIONS, LUNGS CLEAR WITH NO SOB OR DISTRESS NOTED, ABD SOFT BS ACTIVE SMALL ABD INC'S PRESS ASSISTANT AND FEEDER WITH DERMABOND INTACT NO DRNG NOTED, SKIN OTHERWISE INTACT IVF INFUSING AT PRESRIBED RATE INTO RFA IV ACCESS WITH GOOD ASPIRATE NOTED, DENIES PAIN OR DISCOMFORT, COMFORT MEASURES PROVIDED, SITTER AT BEDSIDE FOR SAFETY WELL, WILL CONTINUE TO MONITOR.
--- NOTE | 2018-11-09 07:41 | NUR ---
AM MEAL AT BEDSIDE EZEQUIEL ATTMEPT FEEDING WHEN PT AWAKENS, DOZING AT THIS TIME
--- NOTE | 2018-11-09 08:18 | NUR ---
PT REMAINS RESTING IN BED, OFFERS NO NEW COMPLAINTS, NO S/S OF DISTRESS OR DISCOMFORT NOTED, CALL GORMAN WITHIN REACH.
--- NOTE | 2018-11-09 08:47 | NUR ---
PT REQ BEDPAN WHICH WAS PROVIDED, AFTER A FEW MINUTES HE THEN REMOVED BEDPAN FROM UNDER HIMSELF SAYING "NO";
--- NOTE | 2018-11-09 10:00 | NUR ---
IN TO SEE PATIENT, OK WITH BAEZ REMAINING UNTIL PT MORE ALERT ADN COOPERATIVE, RESTRAINT REMAIN IN PLACE FOR SAFETY AND SITTER REMAINS AT BEDSIDE
--- NOTE | 2018-11-09 11:29 | NUR ---
PT TOOOK PO MEDICATIONS W/O INCIDENT, AND DRANK 120 ML OF WATER WELL, CALL GORMAN WITHIN REACH, REMAINS CONFUSED BUT MORE COOPERATIVE TODAY THAN YESTERDAY.
--- NOTE | 2018-11-09 12:16 | NUR ---
PT FEEDING SELF WITHOUT INCIDENT, TOLERATING DIET W/O INCIDENT, CALL GORMAN WITHIN REACH, WILL CONTINUE TO MONITOR. SITTER REMAINS AT BEDSIDE, SAFETY MEASURES REINFORCED.
--- NOTE | 2018-11-09 14:02 | NUR ---
new iv access obtained in rfa on first attempt pt tolerated well, good aspirate noted, ivf continue as ordered
--- NOTE | 2018-11-09 14:31 | NUR ---
PT OOB TO BSC WITH MOD ASSIST, CONTINENT OF MOD LOOSE BM, SAÚL CARE ASSIST PROVIDED, BACK TO BED AND TOLERATED ACTIVYT WELL, CALL GORMAN WITHIN REACH.
--- NOTE | 2018-11-09 16:32 | NUR ---
PT RESTING IN BED, OFFERS NO NE WCOMPLAINTS, CALL GORMAN WITHIN REACH, EASILY VISIBLE FROM NURSES STATION FOR SAFETY, WILL CONTINUE TO MONITOR.
--- NOTE | 2018-11-09 17:01 | NUR ---
PT REMAIN RESTING IN BED,OFFERS NO NEW COMPLAINTS,CALL GORMAN WITHIN REACH
--- NOTE | 2018-11-09 17:32 | NUR ---
PT SITTING UP ON EDGE OF BED EATING PM MEAL, TOLERATES ACTIVITY WELL COPERATIVE AT THIS TIME, WILL CONTINUE TO MONITOR.
--- NOTE | 2018-11-09 18:50 | NUR ---
REPORT FROM TARA HERRERA. ASSUMED PT. CARE.
--- NOTE | 2018-11-09 20:00 | NUR ---
RESTRAINTS REMOVED AT THIS TIME PT. COOPERATIVE. WILL CONTINUE TO ASSESS.
--- NOTE | 2018-11-09 20:05 | NUR ---
PT. FOUND RESTING ON LT. SIDE IN NO DISTRESS. SITTER AT BEDSIDE. ABD SOFT, NON-TENDER. DENIES PAIN. SLIGHT SHAKING NOTED OF THE HAND WHEN ATTEMPTING TO LIFT AND HOLD OUT. ORIENTED TO PERSON AND PLACE. SKIN WARM AND DRY. AFEBRILE. CALL LIGHT REMAINS WITHIN REACH. RESPS EVEN AND UNLABORED. ESO. SARAH. LUNGS CTA. BOWEL SOUNDS PRESENT IN ALL QUADS. DENIES PAIN OR NEED AT THIS TIME. WILL MEDICATE NEEDED.
--- NOTE | 2018-11-09 21:22 | NUR ---
MEDICATED PER PHYSICIAN ORDERS. REMAINS OUT OF RESTRAINTS AT THIS TIME AND CALM. SITTER REMAINS AT BEDSIDE AT THIS TIME.
--- NOTE | 2018-11-09 23:15 | NUR ---
PT. RESTING SUPINE IN BED. DRINKING ENSURE AT THIS TIME. NO DISTRESS. REMAINS CALM WITHOUT SIGNS OF AGGITATION. CALL LIGHT REMAINS WITHIN REACH AND SITTER AT BEDSIDE.
[2018-11-10] VITALS (12 sets, daily range): BP systolic 105–167; BP diastolic 46–86
--- NOTE | 2018-11-10 00:28 | NUR ---
IV ABX INFUSING WITHOUT SX OF INFILTRATION OF EXTRAVASATION. NO REACTIONS NOTED. SKIN REMAINS WARM AND DRY. AFEBRILE. NO DISTRESS. BP/HR STABLE.
--- NOTE | 2018-11-10 02:35 | NUR ---
PT. REMAINS EASILY AROUSABLE TO LIGHT VERBAL STIMULI. REMAINS CALM AND COOPERATIVE. VSS. CALL LIGHT REMAINS WITHIN REACH. SITTER REMAINS AT BEDSIDE. WILL CONTINUE TO MONITOR.
--- NOTE | 2018-11-10 04:15 | NUR ---
PT. TO BEDSIDE COMMODE. SOMEWHAT UNSTEADY. ONE PERSON ASSIST. MOD/LARGE LOOSE BM AT THIS TIME. PT. CONTINUES TO DENY PAIN. WILL CONTINUE TO MONITOR.
--- NOTE | 2018-11-10 04:50 | NUR ---
LAB AT BEDSIDE AT THIS TIME. SPECIMENS OBTAINED
[2018-11-10 05:05] LABS: HEMATOCRIT 30.5 % (39.0-50.0); HEMOGLOBIN 10.7 g/dl (14.0-18.0); IMMATURE GRANULOCYTES 0.3 % (0.0-5.0); MEAN CELL VOLUME 94.1 fL CALC (80.0-100.0); MEAN CORPUSCULAR HGB CONC 35.1 g/L CALC (32.0-36.0); NEUT# 3.78 thou/uL (1.82-7.42); RED BLOOD COUNT 3.24 mill/uL (4.70-6.10); RED CELL DISTRI WIDTH 11.7 % (11.5-15.5)
[2018-11-10 05:22] LABS: ALKALINE PHOSPHATASE 36 u/l (38-126); AMYLASE 76 u/l (30-110); ANION GAP 14 (6-22 (CALC)); BILIRUBIN, TOTAL 0.3 mg/dL (0.0-1.4); BUN 10 mg/dL (8-23); BUN/CREATININE RATIO 20 (12-20 (CALC)); CARBON DIOXIDE 27 mmol/l (22-30); CHLORIDE 97 mmol/l (95-108); CREATININE 0.5 mg/dL (0.7-1.3); GFR > 60 ML/MIN (>=60 (CALC)); GFR FOR AFR.AMER. > 60 ML/MIN (>=60 (CALC)); LIPASE 569 u/l (23-300); POTASSIUM 3.4 mmol/l (3.5-5.1); SGOT/AST 18 u/l (19-48); SODIUM 134 mmol/l (137-146)
[2018-11-10 05:43] LABS: ALBUMIN 3.1 g/dL (3.2-5.0); MAGNESIUM 1.3 mg/dL (1.6-2.3)
--- NOTE | 2018-11-10 07:20 | NUR ---
PT ALERT AND STILL SLIGHTLY CONFUSED BUT MUCH IMPRTOVED MENTATION OVER YESTERDAY, ABLE TO ANSWER LOCATION, MONTH FULL NAME ETC...DENIES PAIN OR DISCOMFORT, AM ASSESSMENT COMPLETE SEE INTERVENTIONS, LUNGS CLEAR WITH NO SOB OR DISTRESS NOTED, ABD SOFT; BS ACTIVE' LARGE SOFT BM LAST PM PER REPORT; [employer] SLD TEACHER WITH DERMABOND INTACT NO DRNG NOTED, SKIN OTHERWISE INTACT IVF INFUSING AT PRESRIBED RATE INTO RFA IV ACCESS WITH GOOD ASPIRATE NOTED, DENIES PAIN OR DISCOMFORT, COMFORT MEASURES PROVIDED, SITTER AT BEDSIDE FOR SAFETY WELL, WILL CONTINUE TO MONITOR.
--- NOTE | 2018-11-10 07:46 | NUR ---
SET UP ASSIST PROVIDED FRO AM MEAL, SITTER REMAINS AT BEDSIDE
--- NOTE | 2018-11-10 08:02 | NUR ---
WELDING MANAGER/SITTER ASSISTED PT WITH AM CARE INCLUDING COMPLETE ASSIST BATH AND LINEN CHANGE, CURRENTLY SITTING UP IN CHAIR AT BEDSIDE, WILL CONTINUE TO MONITOR.
--- NOTE | 2018-11-10 09:48 | NUR ---
IN TO SEE PATIENT
--- NOTE | 2018-11-10 10:37 | NUR ---
PT RESTING IN BED, NO S/S OF DISCOMFORT, CALL GORMAN WITHIN REACH
--- NOTE | 2018-11-10 11:21 | NUR ---
IN TO SEE PATIENT
--- NOTE | 2018-11-10 11:30 | NUR ---
Larson cathter removed intact w/o incident, pt provided with urinal and instructions regarding the importance of staff being able to measures post larson voids, verbalizes understanding, will continue to monitor.
--- NOTE | 2018-11-10 11:55 | NUR ---
pt set up with regular low sodium diet, intake good and tolerated well, offers no new complaints, call frye within reach, will continue to monitor.
--- NOTE | 2018-11-10 13:56 | NUR ---
pt resting in bed, no s/s of distress or discomfort, no void since larson removal will continue to monitor
--- NOTE | 2018-11-10 15:10 | NUR ---
pt dozing in bed, offers no new complaints, call frye within reach,
--- NOTE | 2018-11-10 15:40 | NUR ---
pt resting in bed, encouraged to be oob ambulating, verbalizes understanding, may require reinforcement related to cognitive deficits will continue to monitor
--- NOTE | 2018-11-10 16:00 | NUR ---
PT AMBULATED AROUND UNIT WITH WALKER AND FAIRLY STEADY GAIT, TOLERATED ACTIVITY WELL, CALL GORMAN WITHIN REACH, WILL CONTINUE TO MONITOR.
--- NOTE | 2018-11-10 18:15 | NUR ---
PT STILL WORKING ON PM MEAL, OFFERS NO NEW COMPLAINTS, TAKES PO MEDICATIONS WELL, CALL GORMAN WITHIN REACH
--- NOTE | 2018-11-10 19:35 | NUR ---
PT. FOUND AWAKE, ALERT, ORIENTED X 3. SKIN WARM AND DRY. AFEBRILE. RESPS EVEN AND UNLABORED. BOWEL SOUNDS PRESENT X 4 QUADS. NO EDEMA NOTED. IV REMAINS PATENT. BANANA BAG INFUSING. NO DRAINIGE NOTED FROM SURGICAL WOUNDS. PT. VOIDED 500 CC YELLOW CLEAR URINE. DENIES COMPLAINTS OF ABDOMINAL PAIN. CALL LIGHT WITHIN REACH. WILL CONTINUE TO ASSESS.
--- NOTE | 2018-11-10 20:22 | NUR ---
REPORT FROM TARA HERRERA. ASSUMED PT. CARE.
--- NOTE | 2018-11-10 20:24 | NUR ---
PT. SITTING UP IN BED IN NO DISTRESS. TAIL BOARD MAN CALLED TO NOTIFY OF TRANSFER ORDERS AT THIS TIME. WILL CONTINUE TO ASSESS.
--- NOTE | 2018-11-10 22:15 | NUR ---
PT. RESTING IN BED WITH EYES CLOSED. DENIES COMPLAINTS OF PAIN OR NEED, BP/HR STABLE AT THIS TIME. CALL LIGHT REMAINS WITHIN REACH. WILL CONTINUE TO ASSESS.
[2018-11-11] VITALS (9 sets, daily range): BP systolic 101–141; BP diastolic 59–92
--- NOTE | 2018-11-11 00:15 | NUR ---
PT. REMAINS EASILY AROUSABLE TO LIGHT VERBAL STIMULI. RESPS REMAIN EVEN AND UNLABORED. BP/HR STABLE. REMAINS AFEBRILE. WILL CONTINUE TO CLOSELY MONITOR.
--- NOTE | 2018-11-11 01:30 | NUR ---
IV FLUIDS AND ABX INFUSED. DISCONTINUED AND IV FLUSHED. PT. REMAINS EASILY AROUSABLE TO LIGHT VERBAL STIMULI. DENIES COMPLAINTS OR NEEDS.
--- NOTE | 2018-11-11 02:54 | NUR ---
PT. RESTING IN BED WITH EYES CLOSED. RESPS EVEN AND UNLABORED. CALL LIGHT REMAINS WITHIN REACH. WILL CONTINUE TO ASSESS.
--- NOTE | 2018-11-11 05:10 | NUR ---
PT. REMAINS EASILY AROUSABLE TO LIGHT VERBAL STIMULI. CALL LIGHT REMAINS WITHIN REACH. LAB AT BEDSIDE TO DRAW PT. DENIES COMPLAINTS OF PAIN OR NEEDS. RESPS REMAIN EVEN AND UNLABORED. AFEBRILE. VSS. WILL CONTINUE TO MONITOR.
[2018-11-11 05:45] LABS: ALBUMIN 2.9 g/dL (3.2-5.0); ALKALINE PHOSPHATASE 33 u/l (38-126); AMYLASE 107 u/l (30-110); ANION GAP 12 (6-22 (CALC)); BILIRUBIN, TOTAL 0.3 mg/dL (0.0-1.4); BUN 12 mg/dL (8-23); BUN/CREATININE RATIO 22 (12-20 (CALC)); CARBON DIOXIDE 26 mmol/l (22-30); CHLORIDE 100 mmol/l (95-108); CREATININE 0.5 mg/dL (0.7-1.3); GFR > 60 ML/MIN (>=60 (CALC)); GFR FOR AFR.AMER. > 60 ML/MIN (>=60 (CALC)); LIPASE 430 u/l (23-300); MAGNESIUM 1.4 mg/dL (1.6-2.3); POTASSIUM 3.3 mmol/l (3.5-5.1); SGOT/AST 19 u/l (19-48); SODIUM 135 mmol/l (137-146); TOTAL PROTEIN 5.6 g/dL (6.3-8.2)
[2018-11-11 05:46] LABS: HEMATOCRIT 30.2 % (39.0-50.0); HEMOGLOBIN 10.5 g/dl (14.0-18.0); IMMATURE GRANULOCYTES 0.4 % (0.0-5.0); MEAN CELL VOLUME 95.3 fL CALC (80.0-100.0); MEAN CORPUSCULAR HGB 33.1 pG CALC (26.0-32.0); MEAN CORPUSCULAR HGB CONC 34.8 g/L CALC (32.0-36.0); NEUT# 3.22 thou/uL (1.82-7.42); RED BLOOD COUNT 3.17 mill/uL (4.70-6.10); RED CELL DISTRI WIDTH 11.8 % (11.5-15.5)
--- NOTE | 2018-11-11 07:27 | NUR ---
PT IS RESTING IN BED . NO DISTRESS NOTED.
--- NOTE | 2018-11-11 07:46 | NUR ---
ASSESSMENT COMPLETED: PT IS ALERT, BREATH SOUNDS ARE CLEAR, BILATERALLY. HR IS REG, PULSES ARE STRONG X4, ABD IS SOFT WITH ACTIVE BS. IV SITE IS FREE FROM REDNESS OR EDEMA.
--- NOTE | 2018-11-11 08:15 | NUR ---
PT TOERATED BREAKFAST WITHOUT INCIDENT/ IV SITE IS FREE FROM REDNESS OR EDEMA. TRANSPORTED TO MED/SURG VIA WC WITH STAFF. MOVED WELL STAND BY ASSISTANCE. A LITTLE WOBBLY,. CONTINUE TO OBSERVE AND MONITOR.
--- NOTE | 2018-11-11 10:41 | NUR ---
PT ARRIVED ROOM 262 @0825 VIA W/C; VITALS AND SHOWER DONE BY GRAVEL TRUCK DRIVER; A/O; RESP EVEN AND UNLABORED; LUNGS CLEAR; ACTIVE BS; NO DRAINAGE NOTED TO SURGICAL WOUND; PULSES STRONG; NO EDEMA NOTE; TELE IN PLACE; CALL GORMAN IN REACH; SAFETY PRECAUTION REINFORCE;
--- NOTE | 2018-11-11 12:33 | NUR ---
PT SITTING UP IN BED EATING LUNCH; RESP EVEN AND UNLABORED; IVF FLOWING WITHOUT COMPLICATIONS; SAFETY PRECAUTION REINFORCE; CALL GORMAN IN REACH.
--- NOTE | 2018-11-11 13:49 | NUR ---
DR VEGA AND JADEN VANCE AT BEDSIDE TO DISCUSS POC.
--- NOTE | 2018-11-11 16:03 | NUR ---
SITTING UP IN BED WATCHING TV; ASSISTED TO RESTROOM, WALK WITH SLOW STEADY GAIT HOLDING ON TO IVP; VOIDED CLEAR YELLOW URINE; BANANA BAG INFUSING WITHOUT DIFFICULTY; CALL GORMAN IN REACH.
--- NOTE | 2018-11-11 19:00 | NUR ---
RECEIVED REPORT FROM DAY NURSE. PT WATCHING TV. NO NEEDS AT THIS TIME. CALL GORMAN IN REACH. WILL CONTINUE TO MONITOR.
--- NOTE | 2018-11-11 20:45 | NUR ---
PT RESTING IN BED WATCHING TV. PT SPEAKS MOSTLY HAITIAN SOME OMANI. ABLE TO ANSWER QUESTIONS APPROPRIATELY. ASSESMENT COMPLETED AT THIS TIME(SEE INTERVENTIONS) LUNG SOUNDS CLEAR, BS HYPOACTIVE, HEART SOUND NORMAL, 3 INSICIONS TO ABD ON LEFT SIDE, HEALING AREAS WITH SOME DRIED SCABBED AREAS. NO SWELLING OR EDMEA NOTED. IV INFUSING WELL. NO NEEDS AT THIS TIME. CALL GORMAN IN REACH. WILL CONTINUE TO MONITOR.
--- NOTE | 2018-11-12 | NUR ---
PT RESTING IN BED. NO S/S OF DISTRESS.CALL GORMAN IN REACH. WILL CONTINUE TO MONIROR.
[2018-11-12 00:24] VITALS: BP 120/65
--- NOTE | 2018-11-12 04:00 | NUR ---
PT RESTING IN BED WITH EYES CLOSED. AWAKES WITH DOOR OPENING. NO NEEDS AT THIS TIME. CALL GORMAN IN REACH. WILL CONTINUE TO MONITOR.
[2018-11-12 04:10] VITALS: BP 133/67
[2018-11-12 05:33] LABS: HEMATOCRIT 29.6 % (39.0-50.0); HEMOGLOBIN 10.3 g/dl (14.0-18.0); IMMATURE GRANULOCYTES 0.3 % (0.0-5.0); MEAN CELL VOLUME 96.1 fL CALC (80.0-100.0); MEAN CORPUSCULAR HGB 33.4 pG CALC (26.0-32.0); MEAN CORPUSCULAR HGB CONC 34.8 g/L CALC (32.0-36.0); NEUT# 2.23 thou/uL (1.82-7.42); RED BLOOD COUNT 3.08 mill/uL (4.70-6.10); RED CELL DISTRI WIDTH 11.9 % (11.5-15.5)
[2018-11-12 05:37] LABS: ALKALINE PHOSPHATASE 34 u/l (38-126); AMYLASE 98 u/l (30-110); ANION GAP 12 (6-22 (CALC)); BILIRUBIN, TOTAL 0.2 mg/dL (0.0-1.4); BUN 12 mg/dL (8-23); BUN/CREATININE RATIO 23 (12-20 (CALC)); CARBON DIOXIDE 28 mmol/l (22-30); CHLORIDE 100 mmol/l (95-108); CREATININE 0.5 mg/dL (0.7-1.3); GFR > 60 ML/MIN (>=60 (CALC)); GFR FOR AFR.AMER. > 60 ML/MIN (>=60 (CALC)); LIPASE 444 u/l (23-300); MAGNESIUM 1.5 mg/dL (1.6-2.3); POTASSIUM 3.7 mmol/l (3.5-5.1); SGOT/AST 18 u/l (19-48); SODIUM 137 mmol/l (137-146); TOTAL PROTEIN 5.9 g/dL (6.3-8.2)
--- NOTE | 2018-11-12 07:10 | NUR ---
report received from ross oh; pt appears to be sleeping with eyes closed; resp even and unlabored; call frye in reach;
[2018-11-12 08:44] VITALS: BP 120/60
--- NOTE | 2018-11-12 08:52 | NUR ---
PT LAYING AWAKE IN BED WATCHING TV; MEDICATED PER EMAR; VITALS STABLE; IV FLUSHED WITHOUT DIFFICULTY, SITE APPEARS HEALTHY; TELE IN PLACE; NO DRAINAGE NOTED TO L ABD SURGICAL WOUND; NO EDEMA NOTED; LUNGS ARE CLEAR; ACTIVE BOWEL SOUND; PT VOICE NO CONCERNS; CALL GORMAN IN REACH; SAFETY PRECAUTION REINFORCE;
[2018-11-12 11:00] VITALS: BP 111/59
--- NOTE | 2018-11-12 11:29 | NUR ---
PT LAYING IN BED WATCHING TV; IVF INFUSING WITHOUT DIFFICULTY, SITE APPEARS HEALTHY; MEDICATED PER EMAR; VOICE NO COMPLAINS; CALL GORMAN IN REACH.
[2018-11-12] MEDS ORDERED: LOPRESSOR 550 MG/TAB PO (14:28)
[2018-11-12] MEDS ORDERED: LIBRIUM25 M1 PO (14:29)
[2018-11-12 14:55] VITALS: BP 125/69
--- NOTE | 2018-11-12 18:05 | NUR ---
PT SITTING UP IN BED EATING SUPPER; DC INSTRUCTIONS GIVEN TO PT REGARDING FOLLOW UP WITH DR LUNA IN A WEEK; TAKE MEDICATIONS PRESCRIBED MELANI/DIRECTOR DECISION SUPPORT AT BEDSIDE TRANSLATE; PT VERBALIZE UNDERSTANDING; IV REMOVED, CATH INTACT; PT WAITING FOR HIS RIDE WHO HAS TO GET A TAXI TO GET HERE. PT WILL CALL WHEN RIDE GETS HERE; TELE REMOVED;
--- NOTE | 2018-11-12 18:36 | NUR ---
Discharge instructions given. Patient verbalizes understanding of same. Discharged in stable condition via Wheelchair to Home with family. All belongings sent with pt.
== END 2018-11-12 18:35 | disposition home or self-care (01) | DRG 336 ==
LOC: ED 21:32 → ED-I 23:40 → ED 11-06 00:03 → MS2 11-06 00:04 → ICU 11-07 19:21 → MS2 11-11 08:17
PROVIDERS: Emergency Medicine; Internal Medicine Nephrology; Surgery; ADMIT Internal Medicine; ATTEND Internal Medicine
PROC: 0DNB4ZZ Release Ileum, Percutaneous Endoscopic Approach (ICD-10-PCS; principal; 2018-11-07)
DX: K56.50 Intestinal adhesions [bands], unspecified as to partial versus complete obstruction (principal); E87.2 Acidosis; F10.231 Alcohol dependence with withdrawal delirium; E51.2 Wernicke's encephalopathy; I10 Essential (primary) hypertension; K70.10 Alcoholic hepatitis without ascites; Z78.1 Physical restraint status
CPT/HCPCS: J0692; J1650; J2060; J2710; J3475; S0164

== ENCOUNTER 2020-04-10 09:09 | Observation (INO) | payer SELFPAY ==
[~2020-04-10] VITALS: Ht 170.2 cm; Wt 59.4 kg
[~2020-04-10 09:09] MED LIST changes: +LIBRIUM25 M1 PO; +LOPRESSOR 550 MG/TAB PO
--- NOTE | 2020-04-10 09:10 | NUR ---
PT TO ROOM VIA WC FOR TRIAGE
--- NOTE | 2020-04-10 10:10 | NUR ---
PT RESTING ON STRETCHER; NO S/S OF DISTRESS NOTED; VSS; PT DENIES ANY NEEDS AT THIS TIME; PT ADVISED OF CONTINUED WAIT TIME; CALL LIGHT WITHIN REACH; WILL CONTINUE TO MONITOR
[2020-04-10 10:32] LABS: HEMATOCRIT 34.1 % (39.0-50.0); IMMATURE GRANULOCYTES 0.4 % (0.0-5.0); MEAN CELL VOLUME 91.9 fL CALC (80.0-100.0); MEAN CORPUSCULAR HGB 33.4 pG CALC (26.0-32.0); MEAN CORPUSCULAR HGB CONC 36.4 g/dL CAL (32.0-36.0); NEUT# 2.31 thou/uL (1.82-7.42); RED BLOOD COUNT 3.71 mill/uL (4.70-6.10); RED CELL DISTRI WIDTH 11.4 % (11.5-15.5)
[2020-04-10 10:51] LABS: BUN 7 mg/dL (8-23); BUN/CREATININE RATIO 12 (12-20 (CALC)); CARBON DIOXIDE 25 mmol/l (22-30); CHLORIDE 88 mmol/l (95-108); CPK 112 u/l (52-200); CREATININE 0.6 mg/dL (0.7-1.3); GFR > 60 ML/MIN (>=60 (CALC)); GFR FOR AFR.AMER. > 60 ML/MIN (>=60 (CALC)); HEMOGLOBIN 12.4 g/dl (14.0-18.0); LIPASE 135 u/l (23-300); POTASSIUM 3.7 mmol/l (3.5-5.1)
[2020-04-10 10:52] LABS: ALBUMIN 5.1 g/dL (3.2-5.0); ALKALINE PHOSPHATASE 59 u/l (38-126); ANION GAP 17 (6-22 (CALC)); SGOT/AST 66 u/l (19-48); SODIUM 126 mmol/l (137-146); TOTAL PROTEIN 8.5 g/dL (6.3-8.2)
[2020-04-10 11:09] LABS: URINE BILIRUBIN - DIPSTICK NEGATIVE (NEGATIVE); URINE BLOOD DIPSTICK NEGATIVE (NEGATIVE); URINE COLOR YELLOW; URINE GLUCOSE - DIPSTICK 100 mg/dL (NEGATIVE); URINE KETONE 15 mg/dL (NEGATIVE); URINE LEUK ESTERASE NEGATIVE (NEGATIVE); URINE NITRITE - DIPSTICK NEGATIVE (Negative); URINE PROTEIN - DIPSTICK TRACE mg/dL (NEG-TRACE); URINE SPECIFIC GRAVITY 1.015
--- NOTE | 2020-04-10 11:14 | NUR ---
PT MEDICATED FOR NAUSEA AT THIS TIME
[2020-04-10 11:22] LABS: TSH, 3RD GENERATION 1.44 uIU/mL (0.47 - 4.68)
--- NOTE | 2020-04-10 12:10 | NUR ---
PT RESTING ON STRETCHER; NO S/S OF DISTRESS NOTED; ADVISED OF CONTINUED WAIT TIME; CALL LIGHT WITHIN REACH; WILL CONTINUE TO MONITOR
--- NOTE | 2020-04-10 12:50 | NUR ---
DR MIRAMONTES AT BEDSIDE TO DISCUSS POC AND FINDINGS
--- NOTE | 2020-04-10 13:50 | NUR ---
PT RESTING ON STRETCHER; ADVISED OF CONTINUED WAIT TIME; PT DENIES ANY OTHER NEEDS AT THIS TIME; WILL CONTINUE TO MONITOR
--- NOTE | 2020-04-10 14:45 | NUR ---
Admission Note Report Given to: DALLAS LOPEZ Transported by: X Wheelchair Stretcher Transported with: X Nurse Transporter X Patent IV O2 X Arboriculture Teacher Location: ICU X [facility]
--- NOTE | 2020-04-10 14:45 | NUR ---
PT ARRIVED TO MED/SURG ROOM 268 IN STABLE CONDITION VIA WHEELCHAIR ACCOMPANIED BY TARA AWAN;PT AMBULATED TO STANDING SCALE AND BEDSIDE WITH A STEADY GAIT;WT AND VS OBTAINED BY BAILEY RANDALL;PT A&O X3,ORIENTED TO ROOM AND CALL LIGHT SYSTEM; PT NOTED TO BE [place]OLD[place] SPEAKING, TRANSLATION PROVIDED BY DALLAS PHELPS;PT REPORTED WORKING IN THE YARD YESTERDAY 04/09/20 AND BECOMING WEAK;PT DENIES ANY CURRENT PAIN OR DISCOMFORTS,PAIN SCALE AND REPORTING EDUCATED;PT DOES REPORT NAUSEA, D.ZOLKES ANRP NOTIFIED AND NEW ORDERS TO BE RECEIVED;RESPIRATIONS EVEN AND UNLABORED ON RA,CLEAR LUNG SOUNDS;ABDOMEN SOFT ON PALPATION AND ACTIVE IN ALL 4 QUADRANTS,LAST BM 04/08/20;STRONG PEDAL PULSES;SKIN INTACT, HOWEVER PT REFUSED TO TAKE HIS PANTS OFF TO INSPECT SKIN;#18G TO RAC FLUSHED AND PATENT,SITE APPEARS HEALTHY AND NS TO BE STARTED @ 100ML/HR;TELE MONITORING IN PLACE;ALLERGY BAND APPLIED TO LEFT ARM;PT REPORTS DRINKING 4-5 BEERS DAILY, ANRP NOTIFIED;PT DENIES ANY ADDITIONAL NEEDS AND IS ENCOURAGED TO CALL FOR ASSISTANCE IF NEEDED;FALL PRECAUTIONS IN PLACE WITH BED IN THE LOWEST POSITION AND CALL LIGHT IN REACH;WILL CONTINUE TO MONITOR
[2020-04-10 14:50] VITALS: BP 191/81
--- NOTE | 2020-04-10 15:17 | NUR ---
PT MEDICATED WITH PRN ZOFRAN 4MG IVP PER ORDER FOR NAUSEA;WILL CONTINUE TO MONITOR
[2020-04-10 15:58] VITALS: BP 152/92
--- NOTE | 2020-04-10 16:27 | NUR ---
PT RESTING IN SEMI FOWLERS POSITION WATCHING TV;RESPIRATIONS EVEN AND UNLABORED ON RA;PT REPORT RELIEF AFTER ZOFRAN ADMINISTRATION,PT DENIES ANY CURRENT PAIN OR NEEDS;300CC OF YELLOW URINE EMPTIED FROM URINAL AT THIS TIME;PT DENIES ANY ADDITIONAL NEEDS AND IS ENCOURAGED TO CALL FOR ASSISTANCE IF NEEDED;CALL LIGHT IN REACH;WILL CONTINUE TO MONITOR
[2020-04-10 19:00] VITALS: BP 154/74
--- NOTE | 2020-04-10 19:00 | NUR ---
REPORT FROM JOHN HAYNES. PT RESTING IN BED. NO APPARENT DISTRESS NOTED. PT ROMANSH SPEAKING ONLY, GOVERNMENT DOCUMENTS LIBRARIAN ON FLOOR TO TRANSLATE. PT C/O NAUSEA, WILL MEDICATE WHEN TIME. DISCUSSED POC. PT VERBALIZED UNDERSTANDING, DENIES ANY CURRENT WANTS OR NEEDS. CALL LIGHT WITHIN REACH. WILL CONTINUE TO MONITOR.
[2020-04-10 23:31] VITALS: BP 130/66
--- NOTE | 2020-04-10 23:46 | NUR ---
PT RESTING IN BED. NO APPARENT DISTRESS NOTED. PT WAKES EASILY. DENIES ANY PAIN OR NAUSEA AT THIS TIME. NO CURRENT WANTS OR NEEDS. CALL LIGHT WITHIN REACH. WILL CONTINUE TO MONITOR.
[2020-04-11 04:00] VITALS: BP 140/75
--- NOTE | 2020-04-11 04:00 | NUR ---
PT RESTING IN BED WITH EYES CLOSED. NO APPARENT DISTRESS NOTED. RESPIRATIONS EVEN AND UNLABORED. PT WAKES EASILY. VSS. URINAL EMPTIED. PT DENIES ANY CURRENT WANTS OR NEEDS. CALL LIGHT WITHIN REACH WILL CONTINUE TO MONITOR.
[2020-04-11 05:29] LABS: ANION GAP 10 (6-22 (CALC)); BUN 8 mg/dL (8-23); BUN/CREATININE RATIO 12 (12-20 (CALC)); CARBON DIOXIDE 27 mmol/l (22-30); CHLORIDE 98 mmol/l (95-108); CREATININE 0.6 mg/dL (0.7-1.3); GFR > 60 ML/MIN (>=60 (CALC)); GFR FOR AFR.AMER. > 60 ML/MIN (>=60 (CALC)); MAGNESIUM 1.6 mg/dL (1.6-2.3); SODIUM 130 mmol/l (137-146)
--- NOTE | 2020-04-11 08:15 | NUR ---
ASSESSMENT DONE. PT IS A&O X3. PT DENIES PAIN AT THIS TIME. RESPS EVEN AND UNLABORED. IVF INFUSING WELL. TELE IN PLACE. PT DENIES ANY NEEDS AT THIS TIME. SAFETY PRECAUTIONS REINFORCED AND CALL LIGHT IN REACH.
[2020-04-11 08:23] VITALS: BP 162/90
[2020-04-11] MEDS ORDERED: LIBRIUM25 M1 PO (11:20)
[2020-04-11 11:56] VITALS: BP 142/74
--- NOTE | 2020-04-11 12:03 | NUR ---
PT IS EATING HIS LUNCH WITH NO S/S OF DISTRESS NOTED. PT DENIES ANY NEEDS AT THIS TIME. CALL LIGHT IN REACH.
[2020-04-11 12:52] VITALS: BP 142/74
--- NOTE | 2020-04-11 15:22 | NUR ---
Discharge instructions given. Patient verbalizes understanding of same. Discharged in stable condition via Wheelchair to Home with staff. All belongings sent with pt.
== END 2020-04-11 15:21 | disposition home or self-care (01) | DRG 641 ==
LOC: ED 09:09 → ED-I 12:47 → ED 13:00 → ED-I 13:01 → MS2 14:11
PROVIDERS: Family Medicine; ADMIT Internal Medicine; ATTEND Internal Medicine
DX: E87.1 Hypo-osmolality and hyponatremia (principal); I10 Essential (primary) hypertension; F10.20 Alcohol dependence, uncomplicated; Z20.828 Contact with and (suspected) exposure to other viral communicable diseases
CPT/HCPCS: G0378; J1650

== ENCOUNTER 2022-11-30 08:11 | Emergency (ER) | payer SELFPAY ==
[~2022-11-30] VITALS: Ht 170.2 cm; Wt 60.0 kg
[2022-11-30] MEDS ORDERED: NAPROXEN500 MG PO (08:55)
[2022-11-30 09:42] LABS: BASO% 0.3 % (0-3); EOS% 2.2 % (0-8); HEMATOCRIT 37.3 % (39.0-50.0); HEMOGLOBIN 12.5 g/dl (14.0-18.0); IMMATURE GRANULOCYTES 0.2 % (0.0-5.0); LYMPH% 36.5 % (15-41); MEAN CORPUSCULAR HGB 30.5 pG CALC (26.0-32.0); MEAN CORPUSCULAR HGB CONC 33.5 g/dL CAL (32.0-36.0); MONO% 13.4 % (2-13); NEUT% 47.4 % (42-76); RED BLOOD COUNT 4.1 mill/uL (4.70-6.10); RED CELL DISTRI WIDTH 11.9 % (11.5-15.5)
[2022-11-30 09:58] LABS: ALBUMIN 4.5 g/dL (3.2-5.0); ALKALINE PHOSPHATASE 57 u/l (38-126); ANION GAP 12 (6-22 (CALC)); BILIRUBIN, TOTAL 0.4 mg/dL (0.2-1.3); BUN 4 mg/dL (8-23); BUN/CREATININE RATIO 8 (12-20 (CALC)); CARBON DIOXIDE 28 mmol/l (22-30); CHLORIDE 92 mmol/l (95-108); CREATININE 0.5 mg/dL (0.7-1.3); ETHYL ALCOHOL 0 mg/dl (0-30); GFR FOR AFR.AMER. > 60 ML/MIN (>=60 (CALC)); GFR OTHER RACES > 60 ML/MIN (>=60 (CALC)); POTASSIUM 3.9 mmol/l (3.5-5.1); SGOT/AST 26 u/l (19-48); SODIUM 128 mmol/l (137-146); TOTAL PROTEIN 8.2 g/dL (6.3-8.2)
[2022-11-30 10:46] VITALS: BP 164/87
== END 2022-11-30 10:54 | disposition home or self-care (01) | DRG 563 ==
LOC: ED 08:11
PROVIDERS: Emergency Medicine
DX: S83.92XA Sprain of unspecified site of left knee, initial encounter (principal); I10 Essential (primary) hypertension; W01.10XA Fall on same level from slipping, tripping and stumbling with subsequent striking against unspecified object, initial encounter

== ENCOUNTER 2023-02-23 22:15 | Emergency (ER) | payer SELFPAY ==
[~2023-02-23] VITALS: Ht 170.2 cm; Wt 58.0 kg
[~2023-02-23 22:15] MED LIST changes: +NAPROXEN500 MG PO
[2023-02-23 23:13] LABS: URINE BILIRUBIN - DIPSTICK NEGATIVE (NEGATIVE); URINE BLOOD DIPSTICK NEGATIVE (NEGATIVE); URINE COLOR YELLOW; URINE GLUCOSE - DIPSTICK NEGATIVE (NEGATIVE); URINE KETONE NEGATIVE (NEGATIVE); URINE LEUK ESTERASE NEGATIVE (NEGATIVE); URINE PH 6.5 (4.5-8.0); URINE PROTEIN - DIPSTICK NEGATIVE (NEG-TRACE); URINE UROBILINOGEN - DIPSTICK 0.2 E.U./dL (0.2)
[2023-02-23 23:14] LABS: URINE NITRITE - DIPSTICK NEGATIVE (Negative)
[2023-02-23 23:49] LABS: BASO% 0.4 % (0-3); EOS% 2.3 % (0-8); HEMATOCRIT 33.4 % (39.0-50.0); HEMOGLOBIN 11.4 g/dl (14.0-18.0); IMMATURE GRANULOCYTES 0.1 % (0.0-5.0); LYMPH% 38.5 % (15-41); MEAN CELL VOLUME 94.6 fL CALC (80.0-100.0); MEAN CORPUSCULAR HGB 32.3 pG CALC (26.0-32.0); MEAN CORPUSCULAR HGB CONC 34.1 g/dL CAL (32.0-36.0); MONO% 14.8 % (2-13); NEUT# 3.42 thou/uL (1.82-7.42); NEUT% 43.9 % (42-76); RED BLOOD COUNT 3.53 mill/uL (4.70-6.10); RED CELL DISTRI WIDTH 12.1 % (11.5-15.5)
[2023-02-24] VITALS (11 sets, daily range): BP systolic 125–177; BP diastolic 79–99
[2023-02-24 00:12] LABS: ALBUMIN 4.4 g/dL (3.2-5.0); ALKALINE PHOSPHATASE 58 u/l (38-126); ANION GAP 14 (6-22 (CALC)); BILIRUBIN, TOTAL 0.3 mg/dL (0.2-1.3); BUN 7 mg/dL (8-23); BUN/CREATININE RATIO 10 (12-20 (CALC)); CARBON DIOXIDE 23 mmol/l (22-30); CHLORIDE 94 mmol/l (95-108); CREATININE 0.7 mg/dL (0.7-1.3); ETHYL ALCOHOL 84 mg/dl (0-30); GFR FOR AFR.AMER. > 60 ML/MIN (>=60 (CALC)); GFR OTHER RACES > 60 ML/MIN (>=60 (CALC)); POTASSIUM 3.7 mmol/l (3.5-5.1); SGOT/AST 45 u/l (19-48); SODIUM 128 mmol/l (137-146); TOTAL PROTEIN 7.8 g/dL (6.3-8.2)
[2023-02-24] MEDS ORDERED: CLONIDINE0.1 MG PO (06:49)
[2023-02-24] MEDS ORDERED: CYCLOBENZAPRINE10 MG PO (06:49)
[2023-02-24] MEDS ORDERED: NAPROXEN500 MG PO (06:49)
== END 2023-02-24 09:06 | disposition home or self-care (01) | DRG 93 ==
LOC: ED 22:15
PROVIDERS: Emergency Medicine
DX: R25.2 Cramp and spasm (principal); F10.10 Alcohol abuse, uncomplicated; I10 Essential (primary) hypertension
CPT/HCPCS: Q9967

== ENCOUNTER 2023-02-24 16:36 | Emergency (ER) | payer SELFPAY ==
[2023-02-24] VITALS (11 sets, daily range): BP systolic 147–219; BP diastolic 86–114
[~2023-02-24] VITALS: Ht 170.2 cm; Wt 54.0 kg
[~2023-02-24 16:36] MED LIST changes: +CYCLOBENZAPRINE10 MG PO
[2023-02-24 17:29] LABS: BASO% 0.3 % (0-3); EOS% 2.8 % (0-8); HEMATOCRIT 35.8 % (39.0-50.0); HEMOGLOBIN 12.2 g/dl (14.0-18.0); IMMATURE GRANULOCYTES 0.2 % (0.0-5.0); LYMPH% 25.1 % (15-41); MEAN CELL VOLUME 94.5 fL CALC (80.0-100.0); MEAN CORPUSCULAR HGB 32.2 pG CALC (26.0-32.0); MEAN CORPUSCULAR HGB CONC 34.1 g/dL CAL (32.0-36.0); MONO% 14.2 % (2-13); NEUT# 3.74 thou/uL (1.82-7.42); NEUT% 57.4 % (42-76); RED BLOOD COUNT 3.79 mill/uL (4.70-6.10); RED CELL DISTRI WIDTH 12.2 % (11.5-15.5)
[2023-02-24 17:43] LABS: ALBUMIN 4.4 g/dL (3.2-5.0); ALKALINE PHOSPHATASE 70 u/l (38-126); ANION GAP 13 (6-22 (CALC)); BILIRUBIN, TOTAL 0.3 mg/dL (0.2-1.3); BUN 15 mg/dL (8-23); BUN/CREATININE RATIO 17 (12-20 (CALC)); CARBON DIOXIDE 24 mmol/l (22-30); CHLORIDE 95 mmol/l (95-108); CREATININE 0.9 mg/dL (0.7-1.3); GFR FOR AFR.AMER. > 60 ML/MIN (>=60 (CALC)); GFR OTHER RACES > 60 ML/MIN (>=60 (CALC)); POTASSIUM 3.7 mmol/l (3.5-5.1); SGOT/AST 45 u/l (19-48); SODIUM 128 mmol/l (137-146); TOTAL PROTEIN 8.4 g/dL (6.3-8.2)
== END 2023-02-24 18:50 | disposition home or self-care (01) | DRG 305 ==
LOC: ED 16:36
PROVIDERS: Family Medicine
DX: I10 Essential (primary) hypertension (principal)